=== PATIENT | female | born 1990 | race Caucasian/White ===

== ENCOUNTER 2018-07-29 19:47 | Emergency (ER) | payer BC, SELFPAY ==
[2018-07-29 19:54] VITALS: BP 128/77; PULSE 95; RESP 16; TEMP 36.7; O2SAT 97
--- NOTE | 2018-07-29 20:04 | W.ED.GENAD ---
Discharge Plan Disposition Patient Disposition: HOME Condition: Fair Discharge Details Chief Complaint: Orthopedic Clinical Impression: DVT (deep venous thrombosis) Primary Care Provider: None,None ED Provider: Gissel Hartman Home Meds and New Rx's Prescriptions: New Eliquis 5 mg tablet See Rx Instructions .ROUTE .COMPLEX Qty: 30 RF: 0 Continued desogestrel-ethinyl estradiol [Apri] 0.15-0.03 mg Tablet 1 tab PO DAILY RF: 0 Discharge Instructions Instructions: Apixaban (By mouth), Deep Venous Thrombosis (ED) Additional Instructions: Your D-dimer is elevated today and your exam is suspicious for deep vein thrombosis. You will need an ultrasound for a definitive diagnosis. Encourage hydration. Tylenol as needed for discomfort. Elevate lower extremity. Take Eliquis as prescribed. This medication increases your risk of bleeding as discussed. Call Ultrasound Wednesday [phone] to schedule ultrasound of your leg. After your ultrasound please come to the emergency department for results. incident response coordinator will work to help you establish primary care. Stop your control, this may be what lead to your clot. You will need to use alternative measures (ie. condoms) to prevent . You will need to follow up with [facility] to discuss other options. If you develop increased pain, fevers/chills, chest pain, shortness of breath, headache, chest pain or other new/worsneing symptoms please seek care urgently once again. Medical Decision Making Patient is 28-year-old female presenting today with chief complaint of left posterior calf pain. She reports the pain began over the past 3 days. Initially, she reports that the pain is intermittent. Over the past 24 hours the pain is become more constant. Endorses an ache in the posterior calf proximally to posterior knee. She denies any altered sensation. Denies any trauma. Patient is a non-smoker, is on oral contraceptive. Exam, calf is soft. She does have tenderness to palpation, positive Homans sign. No palpable cords. Full range of motion. Ultrasound is not available at this time. Plan to obtain a d-dimer to evaluate for possible DVT as this is a concern given the location of the discomfort. D-dimer was elevated. Plan to treat with Eliquis. We discussed risk/benefits of this medication in depth and the concerns associated with DVT. Plan to treat with Eliquis. I have referred patient for a formal ultrasound to be completed as soon as possible. Patient does not have a primary care at this time, I have asked her care according to help facilitate with this. She does not have a primary care, I have asked she return to the emergency department to discuss results after imaging is been completed. Encourage elevation. We discussed new/worsening symptoms when to seek care urgently once again. We discussed medications that she should avoid including anti-inflammatories. Advised she may use Tylenol to help with discomfort. All of her questions and concerns were addressed and she is in agreement this plan. Patient will stop her control as this is likely what precipitated a clot, advised on other contraceptive measures. She will [facility] with [facility] regarding this. Her urine test was negative today. Patient was given a first dose of Eliquis while here. HPI General Mode of arrival: ambulatory. Date/Time Provider Initiated Documentation: 07/29/18 19:58. Limitations to Documentation: no limitations. Information obtained by: patient, family and RN notes reviewed. History of Present Illness 28 year old F presents to the emergency department with the chief complaint of left posterior calf pain, described as moderate, with intensity rated at 6. Quality is described as aching, and is localized to the left and lower extremity. Patient reports no radiation. Patient started experiencing this day(s) and it has been intermittent. No relieving factors improve symptom(s), No exacerbating factors reported . Patient notes no other symptoms.; denies chest pain, cough, fever/chills, nausea/vomiting, shortness of breath and syncope. Patient did receive the following treatments prior to arrival, none Related Data Home Medications Medication Instructions Recorded Confirmed apixaban [Eliquis] See Rx Instructions .ROUTE 07/29/18 .COMPLEX #30 tab desogestrel-ethinyl estradiol 1 tab PO DAILY 07/29/18 07/29/18 [Apri] Previous Rx's Medication Instructions Recorded apixaban [Eliquis] See Rx Instructions .ROUTE 07/29/18 .COMPLEX #30 tab Allergies Allergy/AdvReac Type Severity Reaction Status Date / Time No Known Allergies Allergy Unverified 07/29/18 19:59 General Stated Complaint: Orthopedic SYDNIE: 4 Review of Systems Constitutional Reports as per HPI, Denies chills, Denies fever(s), Denies headache(s) and Denies weakness ENT Denies headache(s) Cardiovascular Reports as per HPI, Denies chest pain, Denies dyspnea and Denies dyspnea on exertion Respiratory Reports as per HPI, Denies cough, Denies dyspnea, Denies dyspnea on exertion and Denies wheezing Musculoskeletal Reports as per HPI and Denies tingling Integumentary/Breasts Reports as per HPI, Denies rash and Denies wounds Neurologic Reports as per HPI, Denies headache(s), Denies tingling, Denies paresthesias and Denies weakness Allergic/Immunologic Denies wheezing [facility] Social History Smoking/Tobacco Use Status: Never Alcohol Intake: never Drug use: Never Substance use type: does not use Do you feel safe at home: Yes Do you feel safe in your relationship?: Yes Exam Const General: cooperative, healthy appearing, comfortable, no acute distress, well developed and well groomed Nutritional Appearance: average body habitus and well nourished Orientation: alert and awake Resp Effort & Inspection: normal respiratory effort, able to speak in complete sentences and no respiratory distress Auscultation: clear to auscultation bilaterally Cardio Rate: regular rate Rhythm: regular rhythm Heart Sounds: S1 normal and S2 normal Skin General skin exam: no rashes or lesions noted Lesions: no lesions Rashes: no rashes Trauma: no lacerations or abrasions Neuro General: alert and awake Cognition: normal cognition Speech: speech normal Gait: normal gait Motor: muscle tone normal throughout Sensory Exam: no sensory deficits noted Extrem General: full ROM, normal capillary refill, no joint enlargement, no pedal edema, normal gait and calf tenderness on the left Left lower extremity: full ROM, normal capillary refill, no joint enlargement, knee Details: normal to inspection, lower leg Details: tenderness (+ Homans) Location: of the posterior calf and no edema; no erythema, no localized swelling, no palpable cords, no crepitus, no deformity and no unusual warmth, ankle Details: normal to inspection and foot Details: normal capillary refill and normal to inspection Psych Appearance: grossly normal and well kempt Mental Status: mental status grossly normal Speech and Movement: speech and movement normal Course Vital Signs Temperature 36.7 C 07/29/18 19:54 Pulse 95 H 07/29/18 19:54 Respiratory Rate 16 07/29/18 19:54 Blood Pressure 128/77 07/29/18 19:54 Pulse Oximetry 97 07/29/18 19:54 Temperature 36.7 C 07/29/18 19:54 Temperature Source Skin 07/29/18 19:54 Pulse 95 H 07/29/18 19:54 Respiratory Rate 16 07/29/18 19:54 Respiratory Effort Non-Labored 07/29/18 19:58 Blood Pressure 128/77 07/29/18 19:54 Pulse Oximetry 97 07/29/18 19:54 Oxygen Delivery Method Room Air 07/29/18 19:54 Oxygen Flow Rate 0 07/29/18 19:54 Pain Level 6 07/29/18 20:01
[2018-07-29 20:57] LABS: D-Dimer 1427 ng/mlFEU (<500)
--- NOTE | 2018-07-29 21:27 | ED.GENADUL_ITS ---
Discharge Plan Disposition Patient Disposition: HOME Condition: Fair Discharge Details Chief Complaint: Orthopedic Clinical Impression: DVT (deep venous thrombosis) Primary Care Provider: None,None ED Provider: Gissel Hartman Home Meds and New Rx's Prescriptions: New Eliquis 5 mg tablet See Rx Instructions .ROUTE .COMPLEX Qty: 30 RF: 0 Continued desogestrel-ethinyl estradiol [Apri] 0.15-0.03 mg Tablet 1 tab PO DAILY RF: 0 Discharge Instructions Instructions: Apixaban (By mouth), Deep Venous Thrombosis (ED) Additional Instructions: Your D-dimer is elevated today and your exam is suspicious for deep vein thrombosis. You will need an ultrasound for a definitive diagnosis. Encourage hydration. Tylenol as needed for discomfort. Elevate lower extremity. Take Eliquis as prescribed. This medication increases your risk of bleeding as discussed. Call Ultrasound Wednesday [phone] to schedule ultrasound of your leg. After your ultrasound please come to the emergency department for results. human resources operations coordinator will work to help you establish primary care. Stop your control, this may be what lead to your clot. You will need to use alternative measures (ie. condoms) to prevent . You will need to follow up with [facility] to discuss other options. If you develop increased pain, fevers/chills, chest pain, shortness of breath, headache, chest pain or other new/worsneing symptoms please seek care urgently once again. Medical Decision Making Patient is 28-year-old female presenting today with chief complaint of left posterior calf pain. She reports the pain began over the past 3 days. Initially, she reports that the pain is intermittent. Over the past 24 hours the pain is become more constant. Endorses an ache in the posterior calf proximally to posterior knee. She denies any altered sensation. Denies any trauma. Patient is a non-smoker, is on oral contraceptive. Exam, calf is soft. She does have tenderness to palpation, positive Homans sign. No palpable cords. Full range of motion. Ultrasound is not available at this time. Plan to obtain a d-dimer to evaluate for possible DVT as this is a concern given the location of the discomfort. D-dimer was elevated. Plan to treat with Eliquis. We discussed risk/benefits of this medication in depth and the concerns associated with DVT. Plan to treat with Eliquis. I have referred patient for a formal ultrasound to be completed as soon as possible. Patient does not have a primary care at this time, I have asked her care according to help facilitate with this. She does not have a primary care, I have asked she return to the emergency department to discuss results after imaging is been completed. Encourage elevation. We discussed new/worsening symptoms when to seek care urgently once again. We discussed medications that she should avoid including anti-inflammatories. Advised she may use Tylenol to help with discomfort. All of her questions and concerns were addressed and she is in agreement this plan. Patient will stop her control as this is likely what precipitated a clot, advised on other contraceptive measures. She will [facility] with [facility] regarding this. Her urine test was negative today. Patient was given a first dose of Eliquis while here. HPI General Mode of arrival: ambulatory . Date/Time Provider Initiated Documentation: 07/29/18 19:58 . Limitations to Documentation: no limitations . Information obtained by: patient, family and RN notes reviewed . History of Present Illness 28 year old F presents to the emergency department with the chief complaint of left posterior calf pain, described as moderate, with intensity rated at 6. Quality is described as aching, and is localized to the left and lower extremity. Patient reports no radiation. Patient started experiencing this day(s) and it has been intermittent. No relieving factors improve symptom(s), No exacerbating factors reported . Patient notes no other symptoms.; denies chest pain, cough, fever/chills, nausea/vomiting, shortness of breath and syncope. Patient did receive the following treatments prior to arrival, none Related Data Home Medications Medication Instructions Recorded Confirmed apixaban [Eliquis] See Rx Instructions .ROUTE 07/29/18 .COMPLEX #30 tab desogestrel-ethinyl estradiol 1 tab PO DAILY 07/29/18 07/29/18 [Apri] Previous Rx's Medication Instructions Recorded apixaban [Eliquis] See Rx Instructions .ROUTE 07/29/18 .COMPLEX #30 tab Allergies Allergy/AdvReac Type Severity Reaction Status Date / Time No Known Allergies Allergy Unverified 07/29/18 19:59 General Stated Complaint: Orthopedic SYDNIE: 4 Review of Systems Constitutional Reports as per HPI, Denies chills, Denies fever(s), Denies headache(s) and Denies weakness ENT Denies headache(s) Cardiovascular Reports as per HPI, Denies chest pain, Denies dyspnea and Denies dyspnea on exertion Respiratory Reports as per HPI, Denies cough, Denies dyspnea, Denies dyspnea on exertion and Denies wheezing Musculoskeletal Reports as per HPI and Denies tingling Integumentary/Breasts Reports as per HPI, Denies rash and Denies wounds Neurologic Reports as per HPI, Denies headache(s), Denies tingling, Denies paresthesias and Denies weakness Allergic/Immunologic Denies wheezing [facility] Social History Smoking/Tobacco Use Status: Never Alcohol Intake: never Drug use: Never Substance use type: does not use Do you feel safe at home: Yes Do you feel safe in your relationship?: Yes Exam Const General: cooperative, healthy appearing, comfortable, no acute distress, well developed and well groomed Nutritional Appearance: average body habitus and well nourished Orientation: alert and awake Resp Effort & Inspection: normal respiratory effort, able to speak in complete sentences and no respiratory distress Auscultation: clear to auscultation bilaterally Cardio Rate: regular rate Rhythm: regular rhythm Heart Sounds: S1 normal and S2 normal Skin General skin exam: no rashes or lesions noted Lesions: no lesions Rashes: no rashes Trauma: no lacerations or abrasions Neuro General: alert and awake Cognition: normal cognition Speech: speech normal Gait: normal gait Motor: muscle tone normal throughout Sensory Exam: no sensory deficits noted Extrem General: full ROM, normal capillary refill, no joint enlargement, no pedal edema, normal gait and calf tenderness on the left Left lower extremity: full ROM, normal capillary refill, no joint enlargement, knee Details: normal to inspection, lower leg Details: tenderness (+ Homans) Location: of the posterior calf and no edema; no erythema, no localized swelling, no palpable cords, no crepitus, no deformity and no unusual warmth, ankle Details: normal to inspection and foot Details: normal capillary refill and normal to inspection Psych Appearance: grossly normal and well kempt Mental Status: mental status grossly normal Speech and Movement: speech and movement normal Course Vital Signs Temperature 36.7 C 07/29/18 19:54 Pulse 95 H 07/29/18 19:54 Respiratory Rate 16 07/29/18 19:54 Blood Pressure 128/77 07/29/18 19:54 Pulse Oximetry 97 07/29/18 19:54 Temperature 36.7 C 07/29/18 19:54 Temperature Source Skin 07/29/18 19:54 Pulse 95 H 07/29/18 19:54 Respiratory Rate 16 07/29/18 19:54 Respiratory Effort Non-Labored 07/29/18 19:58 Blood Pressure 128/77 07/29/18 19:54 Pulse Oximetry 97 07/29/18 19:54 Oxygen Delivery Method Room Air 07/29/18 19:54 Oxygen Flow Rate 0 07/29/18 19:54 Pain Level 6 07/29/18 20:01
[2018-07-29] MEDS: Apixaban 5 MG TAB 10 MG PO ×2 (21:39)
[2018-07-29 21:42] VITALS: BP 125/80; PULSE 90; RESP 19; TEMP 36.7; O2SAT 98
--- NOTE | 2018-08-01 07:40 | PDOC.ERCMPRO ---
Care Management Progress Note 08/01- Gissel LOPES requested assistance with a PCP (patient does not have one, Dr. Pleitez guest relations associate) as soon as possible for ?DVT, patient started on Eliquis. Referral faxed to [facility] this am.
--- NOTE | 2018-08-01 07:41 | CMPROGNOTE_ITS ---
Care Management Progress Note 08/01- Gissel LOPES requested assistance with a PCP (patient does not have one, Dr. Pleitez air intercept controller) as soon as possible for ?DVT, patient started on Eliquis. Referral faxed to [facility] this am.
== END 2018-07-29 21:42 | disposition home or self-care (01) ==
PROVIDERS: Emergency Provider Physician Assistant
DX: I82.402 Acute embolism and thrombosis of unspecified deep veins of left lower extremity (principal)
CPT/HCPCS: 36415; 99283; 85379; L0172

== ENCOUNTER 2018-08-01 06:29 | Outpatient (CLI) | payer BC, SELFPAY ==
--- NOTE | 2018-08-01 09:31 | DI.US_ITS ---
SYMPTOM/DIAGNOSIS: ELEVATED D DIMER, + HOMANS, ? DVT LEFT LOWER EXTREMITY ULTRASOUND: The femoral and popliteal veins and visualized calf veins are freely compressible. No thrombus is visible. The doppler venous wave form augments normally. No Zheng's cyst or hematoma is seen. IMPRESSION: Negative left lower extremity ultrasound. No evidence of DVT.
== END 2018-08-01 06:49 ==
PROVIDERS: Visit Provider Physician Assistant
DX: R79.1 Abnormal coagulation profile (principal); R29.898 Other symptoms and signs involving the musculoskeletal system
CPT/HCPCS: 93971

== ENCOUNTER 2018-08-01 09:58 | Emergency (ER) | payer BC, SELFPAY ==
--- NOTE | 2018-08-01 10:07 | W.ED.GENAD ---
Discharge Plan Disposition Patient Disposition: HOME Condition: Stable Discharge Details Chief Complaint: GenMedical Clinical Impression: Left leg pain Primary Care Provider: None,None ED Provider: Yolanda Scott Home Meds and New Rx's Prescriptions: Continued desogestrel-ethinyl estradiol [Apri] 0.15-0.03 mg Tablet 1 tab PO DAILY RF: 0 Discontinued Eliquis 5 mg tablet See Rx Instructions .ROUTE .COMPLEX Qty: 30 RF: 0 Discharge Instructions Instructions: Leg Pain (ED) Additional Instructions: Please return immediately to the emergency department if you develop any new or worsening symptoms or if you become alert otherwise concerned. It is extremely important that you make an appointment to be seen as soon as possible and follow-up this visit by your primary care doctor as we discussed. It is also important that you have a follow-up ultrasound in 7 days as we discussed as well. Please call [phone] if you have any difficulty establishing this appointment. Discharge Data Discharge Date/Time-TO BE ENTERED AT DEPARTURE: 08/01/18 10:22 Medical Decision Making Jessica March is a 28-year-old woman without history of major medical problems who presented to the emergency department to have ultrasound performed after being placed on Eliquis at visit 3 days ago with concern for lower extremity DVT because of left posterior calf pain. On exam patient is very well and nontoxic appearing. She has mild posterior calf tenderness and popliteal tenderness on the left side. DP pulses are intact and symmetric. There is no lower extremity edema. No rash. Ultrasound results it is negative. At this time there is no indication to continue Eliquis, will also have patient restart her control. Plan for repeat ultrasound in 7 days should symptoms persist. Patient placed on care management list for establishment of PCP and follow-up visit, also for left lower extremity ultrasound in 7 days. I had a lengthy discussion with the patient regarding return to emergency department precautions, importance of outpatient follow-up, and home care. Patient verbalized understanding of the plan was amenable. All questions were answered. Patient was discharged home with clear plan for outpatient follow-up. Medical Records Medical records reviewed: Yes I reviewed the patient's medical records. Imaging Data Radiologic Study: Attestation: I personally reviewed and interpreted this imaging study as follows: Radiologist's impression: LEFT LOWER EXTREMITY ULTRASOUND: The femoral and popliteal veins and visualized calf veins are freely compressible. No thrombus is visible. The doppler venous wave form augments normally. No Zheng's cyst or hematoma is seen. IMPRESSION: Negative left lower extremity ultrasound. No evidence of DVT. HPI General Mode of arrival: ambulatory. Date/Time Provider Initiated Documentation: 08/01/18 10:07. Limitations to Documentation: no limitations. Information obtained by: patient, RN notes reviewed and old records reviewed. HPI Narrative: Jessica March is a 28-year-old woman without history of major medical problems presenting to the emergency department for ultrasound results. Patient was seen here 07/29/2018 for left calf pain. She was put on Eliquis at that time and told to return this morning to have ultrasound performed as it was not available at the time of her initial visit. Patient reports that she has been having the intermittent posterior calf pain for approximately 1 week. She reports that she has been taking the Eliquis as prescribed since 07/29. She reports that pain seems to improve yesterday, and she is only having very mild pain today. She denies any swelling of her legs, rash, fever, shortness of breath, cough. She feels well and in her usual state of health at this time. She denies having any trauma at the time of onset of her pain. No recent illness. Patient did stop taking her control on 07/29/2018 as was advised. Related Data Home Medications Medication Instructions Recorded Confirmed desogestrel-ethinyl estradiol 1 tab PO DAILY 07/29/18 08/01/18 [Apri] Allergies Allergy/AdvReac Type Severity Reaction Status Date / Time No Known Allergies Allergy Unverified 08/01/18 10:11 General SYDNIE: 4 PFS Social History Smoking/Tobacco Use Status: Never Alcohol Intake: never Drug use: Never Substance use type: does not use Do you feel safe at home: Yes Do you feel safe in your relationship?: Yes Exam Narrative Exam Narrative: Constitutional: well and [id number], pleasant, conversing normally HENT: head atraumatic/normocephalic/normal inspection, mucous membranes moist Eyes: conjunctiva normal, sclera normal, pupils 3mm b/l Neck: no stridor, normal ROM, trachea midline Resp: normal work of breathing Cardio: normal rate, normal rhythm Skin: warm, dry, normal color, no rash Neuro: alert, not altered, grossly non-focal, normal tone Ext: no edema, mild posterior calf TTP and popliteal TTP on left, no erythema, normal exam of the RLE, DP pulses intact and symmetric Psych: normal mood, normal affect, normal behavior
[2018-08-01 10:08] VITALS: PULSE 80; RESP 18; TEMP 36.7
[2018-08-01 10:10] VITALS: BP 120/76
--- NOTE | 2018-08-01 10:16 | NUR.NOTE ---
MD Scott examined patient, positive pedal pulse and sensation noted Nursing Note:
--- NOTE | 2018-08-01 10:18 | ED.GENADUL_ITS ---
Discharge Plan Disposition Patient Disposition: HOME Condition: Stable Discharge Details Chief Complaint: GenMedical Clinical Impression: Left leg pain Primary Care Provider: None,None ED Provider: Yolanda Scott Home Meds and New Rx's Prescriptions: Continued desogestrel-ethinyl estradiol [Apri] 0.15-0.03 mg Tablet 1 tab PO DAILY RF: 0 Discontinued Eliquis 5 mg tablet See Rx Instructions .ROUTE .COMPLEX Qty: 30 RF: 0 Discharge Instructions Instructions: Leg Pain (ED) Additional Instructions: Please return immediately to the emergency department if you develop any new or worsening symptoms or if you become alert otherwise concerned. It is extremely important that you make an appointment to be seen as soon as possible and follow-up this visit by your primary care doctor as we discussed. It is also important that you have a follow-up ultrasound in 7 days as we discussed as well. Please call [phone] if you have any difficulty establishing this appointment. Discharge Data Discharge Date/Time-TO BE ENTERED AT DEPARTURE: 08/01/18 10:22 Medical Decision Making Jessica March is a 28-year-old woman without history of major medical problems who presented to the emergency department to have ultrasound performed after being placed on Eliquis at visit 3 days ago with concern for lower extremity DVT because of left posterior calf pain. On exam patient is very well and nontoxic appearing. She has mild posterior calf tenderness and popliteal tenderness on the left side. DP pulses are intact and symmetric. There is no lower extremity edema. No rash. Ultrasound results it is negative. At this time there is no indication to continue Eliquis, will also have patient restart her control. Plan for repeat ultrasound in 7 days should symptoms persist. Patient placed on care management list for establishment of PCP and follow-up visit, also for left lower extremity ultrasound in 7 days. I had a lengthy discussion with the patient regarding return to emergency department precautions, importance of outpatient follow-up, and home care. Patient verbalized understanding of the plan was amenable. All questions were answered. Patient was discharged home with clear plan for outpatient follow-up. Medical Records Medical records reviewed: Yes I reviewed the patient's medical records. Imaging Data Radiologic Study: Attestation: I personally reviewed and interpreted this imaging study as follows: Radiologist's impression: LEFT LOWER EXTREMITY ULTRASOUND: The femoral and popliteal veins and visualized calf veins are freely compressible. No thrombus is visible. The doppler venous wave form augments normally. No Zheng's cyst or hematoma is seen. IMPRESSION: Negative left lower extremity ultrasound. No evidence of DVT. HPI General Mode of arrival: ambulatory . Date/Time Provider Initiated Documentation: 08/01/18 10:07 . Limitations to Documentation: no limitations . Information obtained by: patient, RN notes reviewed and old records reviewed . HPI Narrative: Jessica March is a 28-year-old woman without history of major medical problems presenting to the emergency department for ultrasound results. Patient was seen here 07/29/2018 for left calf pain. She was put on Eliquis at that time and told to return this morning to have ultrasound performed as it was not available at the time of her initial visit. Patient reports that she has been having the intermittent posterior calf pain for approximately 1 week. She reports that she has been taking the Eliquis as prescribed since 07/29. She reports that pain seems to improve yesterday, and she is only having very mild pain today. She denies any swelling of her legs, rash, fever, shortness of breath, cough. She feels well and in her usual state of health at this time. She denies having any trauma at the time of onset of her pain. No recent illness. Patient did stop taking her control on 07/29/2018 as was advised. Related Data Home Medications Medication Instructions Recorded Confirmed desogestrel-ethinyl estradiol 1 tab PO DAILY 07/29/18 08/01/18 [Apri] Allergies Allergy/AdvReac Type Severity Reaction Status Date / Time No Known Allergies Allergy Unverified 08/01/18 10:11 General SYDNIE: 4 PFS Social History Smoking/Tobacco Use Status: Never Alcohol Intake: never Drug use: Never Substance use type: does not use Do you feel safe at home: Yes Do you feel safe in your relationship?: Yes Exam Narrative Exam Narrative: Constitutional: well and vnn-myjmj-dstkhjodt, pleasant, conversing normally HENT: head atraumatic/normocephalic/normal inspection, mucous membranes moist Eyes: conjunctiva normal, sclera normal, pupils 3mm b/l Neck: no stridor, normal ROM, trachea midline Resp: normal work of breathing Cardio: normal rate, normal rhythm Skin: warm, dry, normal color, no rash Neuro: alert, not altered, grossly non-focal, normal tone Ext: no edema, mild posterior calf TTP and popliteal TTP on left, no erythema, normal exam of the RLE, DP pulses intact and symmetric Psych: normal mood, normal affect, normal behavior
--- NOTE | 2018-08-02 08:50 | PDOC.ERCMPRO ---
Care Management Progress Note 08/02-Dr. Darryl Scott requested assistance with a PCP (does not have one, Kaya Danielson news operations manager) f/u as soon as possible. Patient needs a repeat LLE US in 7 days. Referral faxed to [facility] this am.
--- NOTE | 2018-08-02 08:51 | CMPROGNOTE_ITS ---
Care Management Progress Note 08/02-Dr. Darryl Scott requested assistance with a PCP (does not have one, Kaya Danielson insulation helper) f/u as soon as possible. Patient needs a repeat LLE US in 7 days. Referral faxed to [facility] this am.
== END 2018-08-01 10:22 | disposition home or self-care (01) ==
PROVIDERS: Emergency Provider Student in an Organized Health Care Education/Training Program
DX: M79.605 Pain in left leg (principal); Z71.2 Person consulting for explanation of examination or test findings

== ENCOUNTER 2021-02-12 13:07 | Outpatient (CLI) | payer MEDICAID, SELFPAY ==
[2021-02-12 13:46] LABS: HCG Quant, Pregnancy 23 mIU/mL (1-3)
== END 2021-02-12 13:08 | disposition home or self-care (01) ==
LOC: LBO 13:08
PROVIDERS: Visit Provider Obstetrics & Gynecology
DX: Z34.91 Encounter for supervision of normal pregnancy, unspecified, first trimester (principal)
CPT/HCPCS: 36415; 84702

== ENCOUNTER 2021-02-14 03:01 | Outpatient (CLI) | payer MEDICAID, SELFPAY ==
[2021-02-14 10:47] LABS: HCG Quant, Pregnancy 14 mIU/mL (1-3)
== END 2021-02-14 03:02 | disposition home or self-care (01) ==
LOC: LBO 03:01
PROVIDERS: Visit Provider Obstetrics & Gynecology
DX: Z34.91 Encounter for supervision of normal pregnancy, unspecified, first trimester (principal)
CPT/HCPCS: 36415; 84702

== ENCOUNTER 2021-02-25 02:56 | Outpatient (CLI) | payer MEDICAID, SELFPAY ==
[2021-02-25 11:58] LABS: HCG Quant, Pregnancy < 1 mIU/mL (1-3)
== END 2021-02-25 02:57 | disposition home or self-care (01) ==
LOC: LBO 02:56
PROVIDERS: Obstetrics & Gynecology; PCP Internal Medicine; Visit Provider Obstetrics & Gynecology Gynecology
DX: O03.9 Complete or unspecified spontaneous abortion without complication (principal)
CPT/HCPCS: 36415; 84702

== ENCOUNTER 2021-10-29 02:38 | Outpatient (CLI) | payer MEDICAID, SELFPAY ==
[2021-10-29 08:27] LABS: HCG Quant, Pregnancy 344 mIU/mL (1-3)
== END 2021-10-29 02:39 | disposition home or self-care (01) ==
PROVIDERS: PCP Internal Medicine; Visit Provider Obstetrics & Gynecology Gynecology
DX: Z32.01 Encounter for pregnancy test, result positive (principal)
CPT/HCPCS: 36415; 84702

== ENCOUNTER 2021-10-31 01:16 | Outpatient (CLI) | payer MEDICAID, SELFPAY ==
[2021-10-31 14:21] LABS: HCG Quant, Pregnancy 1475 mIU/mL (1-3)
== END 2021-10-31 01:17 | disposition home or self-care (01) ==
LOC: LBO 01:16
PROVIDERS: Obstetrics & Gynecology Gynecology; PCP Internal Medicine; Visit Provider Internal Medicine
DX: Z32.01 Encounter for pregnancy test, result positive (principal); N96 Recurrent pregnancy loss; Z87.59 Personal history of other complications of pregnancy, childbirth and the puerperium
CPT/HCPCS: 36415; 84702

== ENCOUNTER 2022-01-02 01:30 | Outpatient (CLI) | payer MEDICAID, SELFPAY ==
[2022-01-02 12:17] LABS: Kit/Specimen SENT
[2022-01-02 12:37] LABS: Abs Immature Grans 0.05 10^3/uL (0.0-0.06); Absolute Basophil Count 0.05 10^3/uL (0.0-0.2); Absolute Eosinophil Count 0.11 10^3/uL (0.0-0.7); Absolute Lymphocyte Count 3.27 10^3/uL (1.2-3.4); Absolute Monocyte Count 0.43 10^3/uL (0.1-0.8); Absolute Neutrophil Count 6.73 10^3/uL (1.2-6.7); Basophils % 0.5; HCT 33.4 % (36.0-46.0); HGB 11.3 g/dL (11.2-15.7); Immature Grans % 0.5; Lymphocytes % 30.7; MCH 30.1 pg (27.0-33.0); MCHC 33.8 % (32.0-36.0); MCV 89 fL (80-95); MPV 9.8 fL (8.0-11.0); Neutrophils % 63.3; Platelet Count 324 10^3/uL (130-400); RBC 3.76 10^6/uL (3.93-5.22); RDW 12.7 % (11.7-14.6); RDW-SD 41.1 fL; WBC 10.64 10^3/uL (4.4-10.8)
[2022-01-02 13:00] LABS: Glucose,1 Hr (Glucola) 137 mg/dL (80-140)
[2022-01-02 13:12] LABS: TSH (W/Ref FT4) 2.35 uIU/mL (0.36-3.74)
[2022-01-03 09:33] LABS: HIV-1/2 Ag & Ab Screen Negative (Negative)
[2022-01-04 13:55] LABS: Syphilis IgG w/Reflex Nonreactive (Nonreactive)
[2022-01-05 10:17] LABS: Hepatitis B Surface Ag Negative (Negative)
[2022-01-05 11:06] LABS: Varicella IgG Antibody Positive (See Note)
[2022-01-05 11:13] LABS: Rubella IgG Ab (UVM) Positive (See Note)
[2022-01-05 11:15] LABS: Hepatitis C Ab w Rflx HCV PCR Negative (Negative)
[2022-01-20 13:04] LABS: Result Summary NEGATIVE; Specimen WB Whole Blood
== END 2022-01-02 01:31 | disposition home or self-care (01) ==
LOC: LBO 01:31
PROVIDERS: Advanced Practice Midwife; PCP Internal Medicine; Visit Provider Advanced Practice Midwife
DX: Z34.91 Encounter for supervision of normal pregnancy, unspecified, first trimester
CPT/HCPCS: 36415; 81220; 81222; 82950; 86787; 86803; 86850; 86900; 86901; 87340; 87389; 84443; 85025; 86762; 86780

== ENCOUNTER 2022-01-02 14:52 | Outpatient (REF) | payer MEDICAID, SELFPAY ==
--- NOTE | 2022-01-02 11:00 | PAPFT_PTH ---
PATIENT: Jessica Hernandez LOC: [facility] U#:[id number] AGE/SX: 31/F ROOM: RE01/02/[address]: Arabella Glaser : 1990 BED: DIS: 01/02/2022 SPEC #: [id number] RECD: 01/02/22 18:30 STATUS: LYNDSEY REQ #: [id number] LIZZETH: 01/02/22 11:[address]: Arabella Glaser DEPT: [facility] Cytology RECD BY: Mirian Quick ENTERED: 01/02/22 18:31 SP TYPE: PAPFT OTHR DR: Deb Garduno Tissues: 1 - CX/ENDOCX FOR PAP SMEARS Procedures: PAP THIN PREP/UVM Screening HPV DNA PROBE Comments: [id number]
[2022-01-05 15:42] LABS: Chlamydia Result Negative (Negative); GC Result Negative (Negative)
[2022-01-08 10:55] LABS: Buprenorphine Negative ng/mL (Cutoff: 5.0); Norbuprenorphine Negative ng/mL (Cutoff: 2.5)
== END 2022-01-02 14:53 | disposition home or self-care (01) ==
LOC: LBN 14:52
PROVIDERS: PCP Internal Medicine; Visit Provider Advanced Practice Midwife
DX: Z34.91 Encounter for supervision of normal pregnancy, unspecified, first trimester; Z12.4 Encounter for screening for malignant neoplasm of cervix; Z11.3 Encounter for screening for infections with a predominantly sexual mode of transmission; R87.612 Low grade squamous intraepithelial lesion on cytologic smear of cervix (LGSIL); R87.810 Cervical high risk human papillomavirus (HPV) DNA test positive
CPT/HCPCS: 80348; 87491; 87591; 88142; 87086; 87624

== ENCOUNTER 2022-01-15 02:56 | Outpatient (CLI) | payer MEDICAID, SELFPAY ==
[2022-01-15 14:12] LABS: Glucose 1 Hour 99 mg/dL
[2022-01-15 17:11] LABS: Glucose 3 Hour 89 mg/dL
== END 2022-01-15 02:57 | disposition home or self-care (01) ==
PROVIDERS: PCP Internal Medicine; Visit Provider Advanced Practice Midwife
DX: R73.09 Other abnormal glucose (principal)
CPT/HCPCS: 36415; 82951

== ENCOUNTER 2022-04-10 01:15 | Outpatient (CLI) | payer MEDICAID, SELFPAY ==
[2022-04-10 09:28] LABS: Abs Immature Grans 0.04 10^3/uL (0.0-0.06); Absolute Basophil Count 0.03 10^3/uL (0.0-0.2); Absolute Eosinophil Count 0.19 10^3/uL (0.0-0.7); Absolute Lymphocyte Count 3.19 10^3/uL (1.2-3.4); Absolute Monocyte Count 0.62 10^3/uL (0.1-0.8); Absolute Neutrophil Count 6.96 10^3/uL (1.2-6.7); Basophils % 0.3; Eosinophils % 1.7; HCT 33.1 % (36.0-46.0); HGB 10.9 g/dL (11.2-15.7); Immature Grans % 0.4; Lymphocytes % 28.9; MCH 30.2 pg (27.0-33.0); MCHC 32.9 % (32.0-36.0); MCV 92 fL (80-95); MPV 9.3 fL (8.0-11.0); Monocytes % 5.6; Neutrophils % 63.1; Platelet Count 323 10^3/uL (130-400); RBC 3.61 10^6/uL (3.93-5.22); RDW 12.7 % (11.7-14.6); RDW-SD 42.1 fL; WBC 11.03 10^3/uL (4.4-10.8)
[2022-04-10 11:06] LABS: Glucose 1 Hour 126 mg/dL
[2022-04-10 13:27] LABS: Glucose 3 Hour 91 mg/dL
== END 2022-04-10 01:16 | disposition home or self-care (01) ==
LOC: LBO 01:16
PROVIDERS: PCP Internal Medicine; Visit Provider Obstetrics & Gynecology
DX: Z34.92 Encounter for supervision of normal pregnancy, unspecified, second trimester (principal); R73.09 Other abnormal glucose
CPT/HCPCS: 36415; 82951; 85025

== ENCOUNTER 2022-05-11 01:09 | Outpatient (CLI) | payer MEDICAID, SELFPAY ==
--- NOTE | 2022-05-11 07:00 | DI.US_ITS ---
Exam(s) US OB RIGOBERTO WEIGHT EXAM: US OB RIGOBERTO WEIGHT CLINICAL HISTORY: growth due to placenta adherent to uterine septum,Q51.28. TECHNIQUE: Transabdominal obstetrical ultrasound performed. COMPARISON: No exams were available for comparison FINDINGS: Number of fetuses: 1 position: BREECH Placental location: There is a grade 1 fundal placenta. No evidence of previa. BIOMETRIC DATA: BPD: 7.86cm, 31weeks 4days HC: 29.37cm, 32weeks 3days AC: 27.13cm, 31weeks 2days FL: 6.21cm, 32weeks 1day EFW: 1,812.07g, 4lb, 28.5% Composite Age: 31weeks 6days RISSA: 07/07/2022 Heart Rate: 127bpm Amniotic fluid index: 10.55cm. Visually, amount of fluid is within normal limits. IMPRESSION: 1. Single live intrauterine gestation as above. 2. Estimated weight is 1812gms. This is the 29th percentile. 3. Amniotic fluid index is 10.6 cm. Visually within normal limits. DATA REPOSITORY:
== END 2022-05-11 01:29 ==
LOC: DI 01:09
PROVIDERS: PCP Internal Medicine; Visit Provider Obstetrics & Gynecology
DX: Z3A.32 32 weeks gestation of pregnancy (principal); O32.1XX0 Maternal care for breech presentation, not applicable or unspecified; O43.893 Other placental disorders, third trimester
CPT/HCPCS: 76816

== ENCOUNTER 2022-06-11 15:56 | Outpatient (REF) | payer MEDICAID, SELFPAY ==
[2022-06-11 19:07] LABS: *AMPHETAMINES SCREEN URINE Negative (Negative); *BARBITURATES SCREEN URINE Negative (Negative); *BENZODIAZEPINES SCREEN URINE Negative (Negative); Cannabinoids THC Negative (Negative); Cocaine Screen,Urine Negative (Negative); METHADONE URINE SCREEN Negative (Negative); OPIATES URINE SCREEN Negative (Negative)
[2022-06-11 19:12] LABS: Tricyclic Antidepressants Negative (Negative)
[2022-06-18 14:39] LABS: Buprenorphine Negative ng/mL (Cutoff: 5.0); Norbuprenorphine Negative ng/mL (Cutoff: 2.5)
== END 2022-06-11 15:57 | disposition home or self-care (01) ==
LOC: LBN 15:56
PROVIDERS: PCP Internal Medicine; Visit Provider Obstetrics & Gynecology
DX: Z34.93 Encounter for supervision of normal pregnancy, unspecified, third trimester (principal); Z36.85 Encounter for antenatal screening for Streptococcus B; Z3A.36 36 weeks gestation of pregnancy
CPT/HCPCS: 80307; 80348; 87081

== ENCOUNTER 2022-06-24 05:35 | Inpatient (IN) | payer MEDICAID, SELFPAY ==
[2022-06-22 14:08] LABS: Abs Immature Grans 0.11 10^3/uL (0.0-0.06); Absolute Basophil Count 0.06 10^3/uL (0.0-0.2); Absolute Lymphocyte Count 3.47 10^3/uL (1.2-3.4); Absolute Monocyte Count 0.95 10^3/uL (0.1-0.8); Basophils % 0.5; Eosinophils % 1.9; HCT 32.9 % (36.0-46.0); HGB 10.7 g/dL (11.2-15.7); Immature Grans % 0.9; MCH 29.1 pg (27.0-33.0); MCHC 32.5 % (32.0-36.0); MCV 89 fL (80-95); MPV 9.8 fL (8.0-11.0); Monocytes % 7.4; Neutrophils % 62.3; Platelet Count 310 10^3/uL (130-400); RBC 3.68 10^6/uL (3.93-5.22); RDW 13.4 % (11.7-14.6); RDW-SD 43.5 fL; WBC 12.87 10^3/uL (4.4-10.8)
[2022-06-22 14:09] LABS: Absolute Eosinophil Count 0.24 10^3/uL (0.0-0.7); Absolute Neutrophil Count 8.02 10^3/uL (1.2-6.7)
--- NOTE | 2022-06-23 14:47 | ANES.PREOP_ITS ---
General Info Date of Service Date Performed: 06/24/22 Height: 5 ft 5 in Weight: 102 kg Body Mass Index (BMI): 37.4 Surgical Procedure: Operation Date: 06/24/22 07:40 Proposed Procedure Side Surgeon p Repeat Section, B/L Salpingectomy, Possible Hysterectomy Zuleima Schwarz DO Meds Allergies and Home Medications Allergies Allergy/AdvReac Type Severity Reaction Status Date / Time sulfamethoxazole Allergy Verified 06/23/22 10:35 [From Bactrim] trimethoprim [From Bactrim] Allergy Verified 06/23/22 10:35 Home Medication Medication Instructions Recorded prenat.vits,aleyda,uwn-fpsh-nvubg 1 tab PO DAILY 02/12/21 [facility] Active Problems Active Problems: Problem Status Onset Code Z34.90 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 History of marijuana use F12.91 Anxiety F41.9 History of hypothyroidism Z86.39 BMI 31.0-31.9,adult Z68.31 Elevated glucose R73.09 LGSIL on Pap smear of cervix R87.612 Medical History Medical History (Updated 06/11/22 @ 14:51 by Alba Bradshaw RN) Early stage of History of miscarriage Surgical History Surgical History (Updated 11/21/21 @ 09:09 by Yessenia Vallecillo MD) Previous section 35 weeks, breech Status post hysteroscopic resection of uterine septum June 2021 at [facility] Tobacco Smoking/Tobacco Use Status: Never Second hand exposure: Yes Alcohol Alcohol Intake: never Substance Use Substance use: Daily Substance use type: marijuana Prental History History 5 Para 1 Hx # Term Pregnancies Multiple births Hx # Pregnancies 1 Ectopic pregnancies AB induced Hx Number of Living Children 1 AB spontaneous 3 Past Pregnancies Del. Date GA/Weeks # Preg Succ Route Wgt Sex Labor Lgth Anesth esia Location Prov [facility] 07/13/13 35 No Yes Male [place] Delivery Date: 07/13/13 Last Updated by: Arabella Glaser CNM PPROM at 35 weeks. no complications from surgery Vital Signs and Lab Results Vital Signs Most Recent Vital Signs in EMR: Temp Pulse BP 36.9 C 90 112/74 06/24/22 06:27 06/24/22 06:27 06/24/22 06:27 Lab Results Blood Type / Crossmatch: Patient ABO/Rh A Positive 06/22/22 Antibody Screen NEGATIVE 06/22/22 Complete Blood Count: White Blood Count 12.87 10^3/uL (4.4-10.8) H 06/22/22 14:02 Red Blood Count 3.68 10^6/uL (3.93-5.22) L 06/22/22 14:02 Hemoglobin 10.7 g/dL (11.2-15.7) L 06/22/22 14:02 Hematocrit 32.9 % (36.0-46.0) L 06/22/22 14:02 Platelet Count 310 10^3/uL (130-400) 06/22/22 14:02 Complete Metabolic Panel: No Data to Display Liver Function Panel: No Data to Display Coagulation Panel: No Data to Display Cardiac Panel: No Data to Display Arterial Blood Gas: No Data to Display Venous Blood Gas: No Data to Display Pancreas Panel: No Data to Display Thyroid Panel: No Data to Display Infectious Disease: No Data to Display Blood Cultures: No Data to Display Toxicology Panel: Urine Amphetamines Screen Negative (Negative) 06/11/22 15:00 Urine Benzodiazepines Screen Negative (Negative) 06/11/22 15:0 0 Urine Barbiturates Screen Negative (Negative) 06/11/22 15:00 Urine Cocaine Screen Negative (Negative) 06/11/22 15:00 Urine Methadone Screen Negative (Negative) 06/11/22 15:00 Urine Opiates Screen Negative (Negative) 06/11/22 15:00 Ur Tricyclic Antidepressants Screen Negative (Negative) 15:00 Ur Tetrahydrocannabinol (THC) Scrn Negative (Negative) 3 15:00 Panel: No Data to Display Anesthesia Assessment and Plan Anesthesia History Personal History: No History of Anesthesia Complications Family History: No Family History of Anesthesia Complications Exercise Tolerance Exercise Tolerance: Metabolic Equivalents>4 Cardiac & Pulmonary Exam Cardiac Exam: Normal S1/S2 Heart Sounds Pulmonary Exam: Clear Bilateral Breath Sounds Implantable Cardiac Device Does patient have a Pacemaker or an ICD?: No Airway Exam Known Difficult Airway: No Mallampati Class: 2 Mouth Opening: Normal (> 3cm) Thyromental Distance: Greater than 3 cm Neck Range of Motion: Full ROM Neck Circumference: Normal Teeth Condition: Normal Dentition ASA Classification ASA Score: ASA 2 Emergency Case?: No NPO Status NPO Status: NPO Clears >2 hours, Solids >8 hours Status Status: Confirmed Anesthesia Plan Resuscitation Status: Full Code Anesthesia Technique: Spinal Anesthesia Airway Planned: Natural Airway Monitors Used: Standard Monitors Preoperative Comments:: 32 yo female for repeat section. previous section in 2013 at 35 weeks, breech, in [place]. Sig PMHx: septate uterus, anxiety (sertraline), hypothyroid (last TSH normal, not on replacement), never tobacco, former cannabis At risk for PPH. Previous Anes: - LMA 4, easy mask. Plan: spinal, 2 IVs.
[2022-06-24] VITALS (9 sets, daily range): BP systolic 103–125; BP diastolic 59–76; PULSE 64–98; RESP 17–18; TEMP 36.4–36.9; O2SAT 98; BMI 37.4
[2022-06-24] MEDS: Lactated Ringers 1,000 ML 200 ML IV (06:54)
[2022-06-24] MEDS: AZITHROMYCIN 500 MG in Normal Saline 250 ML 250 MG IVPB (06:54)
[2022-06-24] MEDS: Sodium Citrate 30 ML CUP PO (07:21)
[2022-06-24] MEDS: ceFAZolin 2 GM/50 ML BAG IVPB (07:36)
[2022-06-24] MEDS: Lactated Ringers 1,000 ML 30 ML IV (07:36)
[2022-06-24] MEDS: Bupivacaine 0.25% Pres-Free 30 ML VIAL (07:56)
--- NOTE | 2022-06-24 08:24 | FALL_PTH ---
PATIENT: Jessica Hernandez LOC: OBS U#:[id number] AGE/SX: 32/F ROOM: OBS.303 RE06/24/[address]: Zuleima Schwarz DO : 1990 BED: A DIS: 06/27/2022 SPEC #: [id number] RECD: 06/24/22 11:33 STATUS: LYNDESY REQ #: [id number] LIZZETH: 06/24/22 08:[address]: Zuleima Schwarz DEPT: Surgical Specimen RECD BY: Mirian Quick ENTERED: 06/24/22 11:34 SP TYPE: Fall OTHR DR: Deb Garduno Tissues: 1 - FALLOPIAN TUBE (STERILIZATION) 2 - FALLOPIAN TUBE (STERILIZATION) Procedures: GROSS AND MICRO LEVEL 2 Comments: [id number]
--- NOTE | 2022-06-24 08:46 | PDOC.OPNB_ITS ---
Date of service: 06/24/22 Time of Service: 08:47 Operative Note Operative Note Delivery Method: Scheduled and Repeat (Breech) Previous LT Incision: Yes DATE OF PROCEDURE: 06/24/22 PRE-OP DIAGNOSES: Term , prior section, breech presentation POST-OP DIAGNOSES: same (With 2 cm anterior fundal uterine fibroid, and undesired fertility) PROCEDURE: Repeat low-transverse section with bilateral salpingectomy SURGEON: Zuleima Schwarz Assisting Surgeon: Rocio Bacon Anesthesia: local and spinal Estimated blood loss (mL): 500 Pathology: other (1. Left fallopian tube 2. Right fallopian tube) Complications: None Patient was transported to: floor Patient's condition: stable Indications: Prior section, breech presentation, undesired fertility Findings: Normal-appearing fallopian tubes and ovaries bilaterally. Fetus in the breech presentation. Uterus with a window in the lower uterine segment at her previous section scar, and small anterior fundal uterine fibroid. Procedure Description: After full informed consent was obtained, the patient was taken the operating room with an IV running. She was placed in the seated position and spinal anesthesia administered, tested and found to be adequate. She was placed in the dorsal supine position with a leftward tilt prepped. She received Ancef 2 g and Zithromax 500 mg for surgical site infection prophylaxis. She had a vaginal preparation and placement of Campbell catheter. As of note, with placement of Campbell catheter urine appeared somewhat bloody tinged, though atraumatic insertion. She had pneumatic compression stockings for DVT prophylaxis. A Pfannenstiel skin incision was made through her previous surgical incision site and carried down to the underlying fascia. Fascia was nicked in the midline and extended laterally. The rectus muscles were identified in the midline. Peritoneum identified tented up and entered sharply. The peritoneal incision was then extended superiorly and inferiorly and the bladder blade was inserted. There was noted to be a thin window in the lower uterine segment. The vesicouterine peritoneum identified tented up and entered sharply and the bladder flap was created. The bladder blade was then reinserted and a low transverse uterine incision was made with a scalpel and extended bluntly laterally. There is artificial rupture of membranes for clear fluid. The breech was delivered through the incision to the point that the shoulders were identified. The right arm was delivered out through the incision followed by the left arm and with the head in the flexed position vertex was delivered through the incision. There is no evidence of nuchal cord. Three-vessel cord was noted clamped x2 and cut and the infant was handed off to the waiting diatrician. At this point cord blood samples were obtained and the placenta was manually expressed from the uterus. The uterus was then exteriorized and cleared of all clot and debris. On palpation there was noted to be approximately 3 cm her remaining uterine septum at the fundus and a heart-shaped appearance to the uterus. At this point the uterine incision was closed in a 2 layer closure using 0 Monocryl suture with the first layer being running locked, second being imbricating. The uterus was noted to be hemostatic at this point. Attention was then turned to the left fallopian tube which was cautery transected and removed. Similar procedure carried out on the right fallopian tube. Uterus was then returned to the abdomen and all pedicles again reinspected and noted to be hemostatic. The fascial incision was then closed using 0 Vicryl suture in a running fashion. Subcutaneous tissue irrigated with copious amounts of normal saline and reapproximated with 3-0 Vicryl. The skin edge was then reapproximated with 4-0 undyed Monocryl in a subcuticular fashion and Steri- Strips and sterile dressing were placed. The uterus was noted to be firm and approximately 2 cm below the umbilicus at the time of completion of her surgery. Sponge lap and needle counts were correct x2. Patient was taken to the center in stable condition with a Campbell catheter draining slightly blood-tinged urine as it was at the placement of her catheter. Findings: Delivery of a viable female from the angela breech presentation. Normal-appearing fallopian tubes and ovaries bilaterally. Thin window in the lower uterine segment from previous section. 2 cm anterior fundal uterine fibroid. Fluids: Crystalloid per anesthesia EBL: 500 mL Complications: None apparent Pathology: 1. Left fallopian tube 2. Right fallopian tube.
--- NOTE | 2022-06-24 09:04 | W.ANESPOSTOP ---
Postoperative Evaluation Date, Time and Location Date Performed: 06/24/22 Time Performed: 09:04 Patient Location: Obstetrics Vital Signs Most Recent Imported Vital Signs: Most Recent Vital Signs Temp Pulse BP 36.9 C 73 111/59 L 06/24/22 06:27 06/24/22 08:58 06/24/22 08:58 Assessment Mental Status: Awake (Alert & Oriented to Patient Baseline) Airway and Respiratory Function: Patent airway with normal (patient baseline) respiratory exam Cardiovascular Function: Hemodynamically Stable Hydration Status: Adequately Hydrated Nausea & Vomiting: No Nausea or Vomiting Pain: Pt. Denies Any Pain Peripheral Nerve Block: Patient did not receive a nerve block Postoperative Comments:: Spinal still in effect. Slight tremor, discussed dexmed to stop it, but will hold on that for now. encouraged to reach out with any questions of concerns
[2022-06-24] MEDS: Ondansetron 4 MG/2 ML VIAL IVP (11:56)
[2022-06-24] MEDS: Lactated Ringers 1,000 ML 120 ML IV (14:14)
[2022-06-24] MEDS: Ketorolac 30 MG/ML VIAL 15 MG IVP ×2 (14:20→20:09)
[2022-06-24] MEDS: Normal Saline Flush 10 ML SYR IVP (14:21)
[2022-06-24] MEDS: Simethicone 80 MG CHEW 40 MG PO (14:51)
[2022-06-24] MEDS: Simethicone 80 MG CHEW 160 MG PO (20:09)
[2022-06-25] VITALS (20 sets, daily range): BP systolic 106–130; BP diastolic 58–82; PULSE 80–106; RESP 15–23; TEMP 36.7–37.1; O2SAT 93–98
[2022-06-25] MEDS: Normal Saline Flush 10 ML SYR IVP ×3 (02:13→19:51)
[2022-06-25] MEDS: Ketorolac 30 MG/ML VIAL 15 MG IVP (02:13)
[2022-06-25] MEDS: oxyCODONE 5 mg/Acetaminophen 325 mg TAB PO ×3 (06:15→21:06)
--- NOTE | 2022-06-25 08:00 | DI.CT_ITS ---
Exam(s) CT ABDOMEN PELVIS W EXAM: CT ABDOMEN PELVIS W CLINICAL HISTORY: post op, Suspect hemoperitoneum. TECHNIQUE: Imaging Protocol: Axial computed tomography images with coronal and sagittal reformatted images were created and reviewed CONTRAST MATERIAL: Intravenous: Omnipaque 350 Contrast volume:100 ml Oral: no COMPARISON: No exams were available for comparison FINDINGS: ABDOMEN: Lung Bases: A tiny right pleural effusion and adjacent atelectasis. Liver: Normal density. No suspicious measurable mass. Gallbladder and biliary tract: No radiodense calculus or dilation. Pancreas: Normal density, no abnormal calcifications or inflammatory process. Spleen: Normal. Kidneys: Normal size, contour and axis. No radiodense stones or obstructive uropathy. No suspicious m asses seen. Adrenal glands: No masses seen. Abdominal Aorta: Abdominal portion non-dilated. Soft tissues: Multiple air bubbles within anterior abdominal wall consistent with recent surgery. PELVIS: Bladder: Distended. Few bubbles of air presumably related to recent instrumentation.. No gross wall thickening. No calculi.No focal mass. Bowel: Large quantity of stool in ascending colon. No obstruction. No bowel wall thickening. Appen carrie not visualized. Peritoneal cavity: Free air related to recent surgery. Small amount of fluid seen around the liver a nd spleen. High-density material seen in the low pelvis mainly along the right paracolic gutter susp icious for hemorrhage. No definite area of active extravasation. Bones: Within normal limits for age. Reproductive organs: Markedly enlarged uterus consistent with recent status. Small amount of blood products in the lower cervix. Low-density area anteriorly could be sites of this area in s ection. Lymph nodes: Unremarkable. Impression: Enlarged uterus, status post . Hemoperitoneum. No site of active contrast extravasation vi sible. RADIATION DOSE DELIVERED: 1,541.59mGy.cm Total DLP DATA REPOSITORY: All CT scans at this facility are submitted to the National Radiology Data Registry (NRDR) Dose Index Registry (DIR) with the [employer] (A[employer]). RADIATION OPTIMIZATION: All CT scans at this facility use at least one of these dose optimization te chniques: automated exposure control; mA and/or kV adjustment per patient size (includes targeted exa ms where dose is matched to clinical indication); or iterative reconstruction.
--- NOTE | 2022-06-25 08:35 | OBPPV_ITS ---
Date of service: 06/25/22 Time of Service: 08:35 Assessment and Plan Assessment and plan (1) Status post repeat low transverse section: Status: Acute Assessment and plan: Postoperative day #1 status post repeat low transverse section with bilateral salpingectomy. Patient is displaying signs of a hemoperitoneum with drop in hemoglobin and CT confirmed these findings. To be taken the operating suite and urgent fashion for exploratory laparotomy with removal of hemoperitoneum, and control of bleeding. She does understand that hysterectomy may be a possibility. She received packed red blood cells. Cryoprecipitate is being followed. (2) Hemoperitoneum: Status: Acute Subjective Subjective Narrative: This is a late entry progress note. Patient was seen and examined on the [facility] at approximately 715 this morning. Upon arrival to the [facility], I was notified of a postoperative hemoglobin of 5.8. Nursing reported stable vital signs throughout the night. Her Campbell catheter had been continued at approximately 6 PM. She had not voided spontaneously until approximately 1 AM. She had a bladder scan that was performed per nursing report for 200 cc of urine and then she voided at approximately 115 for 225 cc of urine. Upon my arrival on the floor this morning, patient appeared somewhat pale with some abdominal tenderness. She stated that she had 1 Percocet which relieved her pain somewhat. She had been up and ambulatory without dizziness. In light of her reported drop of hemoglobin from 10.7-5.8 with her symptoms, repeat hemoglobin was performed at 5.9. Stat CT of the abdomen and pelvis with contrast was performed which revealed diffuse hemoperitoneum. In light of this and all the findings, it is warranted to take her back to the operating room for exploratory laparotomy removal of hemoperitoneum to assess bleeding. She does understand that she will receive at minimum 2 units of packed red blood cells and have an open laparotomy. This does not appear to be a uterine source, however she had previously been consented for hysterectomy which is still a possibility if her source is a uterine bleeder. Risk benefits and alternatives of surgery were reexplained to the patient, and her and full informed consent was obtained. Exam Physical Exam Vital signs: Temp Pulse Resp BP Pulse Ox 98.2 F 88 16 106/61 98 06/25/22 07:30 06/25/22 07:30 06/25/22 02:20 06/25/22 07:30 06/25/22 02:20 Constitutional Comments: Pale, abdominal discomfort. Alert, awake, oriented HEENT Exam HEENT Exam: Normal Cardiovascular Exam Cardiovascular Exam: Normal Abdominal Exam Comments: Abdomen is distended, tender, diffusely. No rebound or rigidity, however markedly different than her postoperative examination immediately upon her Fundal Exam Comment: Not palpable due to her distention.
[2022-06-25] MEDS: ELECTROLYTE-R SOLUTION 1,000 ML 30 ML IV (09:07)
[2022-06-25] MEDS: ceFAZolin 2 GM/50 ML BAG IVPB (09:18)
[2022-06-25] MEDS: Cellulose,Oxidized 4X8 1 PACKET MC (09:38)
--- NOTE | 2022-06-25 10:41 | W.PM.OP ---
Date of service: 06/25/22 Time of Service: 10:41 Operative Note Operative Note DATE OF PROCEDURE: 06/24/22 PRE-OP DIAGNOSIS: Postoperative bleeding, hemoperitoneum POST-OP DIAGNOSIS: same (No active source of bleeding) PROCEDURE: Exploratory laparotomy, removal of hemoperitoneum. SURGEON: Zuleima Schwarz ASSISTING SURGEON: Rocio Bacon ANESTHESIA TYPE: General LMA/ETT Refer to Anesthesia Record ESTIMATED BLOOD LOSS: 500 PATHOLOGY: none sent COMPLICATIONS: None (Hemoperitoneum, no active bleeding.) Patient was transported to: floor Patient's condition: stable Indications: Postoperative anemia, clinical suspicion of hemoperitoneum. Free fluid in the abdomen and pelvis confirmed on CT Findings: Hemostatic pedicles at the bilateral fallopian tube resection sites, and uterus. 500 cc of old blood and clot in the pelvis and abdomen. No active source of bleeding. Normal-appearing ovaries bilaterally. Uterus involuted. Procedure Description: Upon evaluation the patient this morning with a noted, and substantial drop in her hemoglobin with moderately poor urine output, clinical suspicion was for hemoperitoneum. Patient was having significant postoperative pain. She had a stat CAT scan performed confirming hemoperitoneum. In light of these findings, full informed consent was obtained for exploratory laparotomy. 2 large-bore IVs start sites have been started and she was taken to the operating suite. She was placed in the dorsal supine position and endotracheal intubation performed for the administration of general anesthesia with ease. She received 2 g of Ancef for surgical site prophylaxis. She had a Campbell catheter inserted for continuous bladder drainage. As of note, at the time of insertion of her Campbell catheter, she had 800 cc of clear yellow urine return. She had pneumatic compression stockings for DVT prophylaxis and she was grounded on the right thigh. She was then prepped and draped in the usual sterile fashion and her previous Pfannenstiel skin incision was opened. There was noted to be a small amount of serous fluid in the subcutaneous space. The fascial incision was then opened and there was noted to be well-formed clot superior and inferior to the rectus muscles. Hemoperitoneum was removed both mechanically, and with suction. The entirety of the abdomen was inspected. In a systematic fashion all pedicles from her previous section and salpingectomy were inspected. Starting with the left fallopian tube pedicle site hemostasis was noted. At the uterine incision the uterine incision was well approximated. There was a small amount of adherent clot which was removed and a small amount of blood ooze was noted. There was no active bleeding. The right fallopian tube pedicle was then inspected and also noted to be hemostatic. At this point with no active bleeding the entirety of the abdomen and pelvis were irrigated with copious amounts of normal saline to remove all old blood and clot. At this point, again in a systematic fashion both fallopian tube pedicles and the uterine pedicles were inspected. Again there is noted to be a very minor amount of ooze from the uterine incision which would be expected. In light of this, and her previous substantial blood loss, Surgicel was placed and remained in place for approximately 3 minutes. Surgicel was then removed and Floseal placed across the uterine incision. Again all sites were noted to be hemostatic. With no active bleeding noted, decision was made to close the fascia. There is 1 area at the rectus muscle which had a small amount of bleeding. This was oversewn with a single stitch of 0 Monocryl suture and hemostasis achieved. I do not feel that this was a significant source of bleeding, however in light of her previous blood loss meticulous attention to all areas were again performed. The fascial incision was then closed using 0 Vicryl suture in a running fashion. Subcutaneous tissue irrigated again with copious amounts of normal saline and subcu space closed with 3-0 Vicryl suture. The skin edge was reapproximated in a subcuticular fashion and a herb dressing was placed. Patient awoke from anesthesia with ease and was taken to the postanesthesia care unit with a Campbell catheter draining clear yellow urine in stable condition. Intraoperatively she had approximately 100 cc of clear yellow urine during the 1 hour surgical procedure. She did receive 2 units of packed red blood cells and 2 units of cryoprecipitate. EBL: 500 cc of hemoperitoneum, clot and old blood, with approximately 2 potentially 100 cc of new or bleeding from surgical site oozing. Fluids: Crystalloid per anesthesia Complications: None apparent Implants: None Pathology: None sent
--- NOTE | 2022-06-25 10:45 | W.ANESPOSTOP ---
Postoperative Evaluation Date, Time and Location Date Performed: 06/25/22 Time Performed: 10:45 Patient Location: PACU Vital Signs Most Recent Imported Vital Signs: Most Recent Vital Signs Temp Pulse Resp BP Pulse Ox 36.8 C 88 16 106/61 98 06/25/22 07:30 06/25/22 07:30 06/25/22 02:20 06/25/22 07:30 06/25/22 02:20 Most Recent Vital Signs Temp Pulse BP 36.9 C 73 111/59 L 06/24/22 06:27 06/24/22 08:58 06/24/22 08:58 Pain Score Most Recent Pain Score: Most Recent Pain Score Pain Level [Abdomen] 6 06/25/22 07:30 Assessment Mental Status: Arousable with meaningful communication Airway and Respiratory Function: Patent airway with normal (patient baseline) respiratory exam Cardiovascular Function: Hemodynamically Stable Hydration Status: Adequately Hydrated Nausea & Vomiting: No Nausea or Vomiting Pain: Pain is tolerable per patient Peripheral Nerve Block: Patient did not receive a nerve block Postoperative Comments:: In PACU, stable. 2nd FFP to be hung.
[2022-06-25] MEDS: HYDROmorphone 2 MG/ML SYR IVP (10:57)
[2022-06-25 11:08] LABS: Abs Immature Grans 0.12 10^3/uL (0.0-0.06); Absolute Basophil Count 0.05 10^3/uL (0.0-0.2); Absolute Lymphocyte Count 4.31 10^3/uL (1.2-3.4); Absolute Monocyte Count 1.11 10^3/uL (0.1-0.8); Absolute Neutrophil Count 9.72 10^3/uL (1.2-6.7); Basophils % 0.3; Eosinophils % 0.5; Immature Grans % 0.8; MCH 29.1 pg (27.0-33.0); MCHC 32.4 % (32.0-36.0); MCV 90 fL (80-95); MPV 10.5 fL (8.0-11.0); Monocytes % 7.2; Neutrophils % 63.2; Platelet Count 268 10^3/uL (130-400); RBC 1.99 10^6/uL (3.93-5.22); RDW 13.9 % (11.7-14.6); RDW-SD 45.1 fL; WBC 15.38 10^3/uL (4.4-10.8)
[2022-06-25 11:31] LABS: HCT 17.9 % (36.0-46.0); HGB 5.8 g/dL (11.2-15.7)
[2022-06-25 11:32] LABS: Absolute Eosinophil Count 0.07 10^3/uL (0.0-0.7)
[2022-06-25 11:33] LABS: Diff Comment Diff Reviewed
[2022-06-25] MEDS: Lactated Ringers 1,000 ML 125 ML IV ×2 (12:12→19:50)
[2022-06-25 12:59] LABS: Abs Immature Grans 0.11 10^3/uL (0.0-0.06); Absolute Basophil Count 0.05 10^3/uL (0.0-0.2); Absolute Eosinophil Count 0.11 10^3/uL (0.0-0.7); Absolute Monocyte Count 1.09 10^3/uL (0.1-0.8); Basophils % 0.3; Eosinophils % 0.7; Immature Grans % 0.7; Lymphocytes % 30.5; MCH 29.6 pg (27.0-33.0); MCHC 32.8 % (32.0-36.0); MCV 91 fL (80-95); MPV 9.7 fL (8.0-11.0); Monocytes % 7.1; Neutrophils % 60.7; Platelet Count 279 10^3/uL (130-400); RBC 1.99 10^6/uL (3.93-5.22); RDW 13.8 % (11.7-14.6); RDW-SD 44.8 fL; WBC 15.36 10^3/uL (4.4-10.8)
[2022-06-25 13:01] LABS: HGB 5.9 g/dL (11.2-15.7)
[2022-06-25 13:02] LABS: Absolute Lymphocyte Count 4.69 10^3/uL (1.2-3.4); Absolute Neutrophil Count 9.31 10^3/uL (1.2-6.7); INR 0.9 (0.9-1.1); PTT Activated 22.3 sec (21.5-31.9); Prothrombin Time 9.1 sec (9.3-11.0)
[2022-06-25 13:11] LABS: HCT 23.2 % (36.0-46.0); HGB 7.7 g/dL (11.2-15.7); MCH 29.7 pg (27.0-33.0); MCHC 33.2 % (32.0-36.0); MCV 90 fL (80-95); Platelet Count 219 10^3/uL (130-400); RBC 2.59 10^6/uL (3.93-5.22); RDW 13.9 % (11.7-14.6); RDW-SD 45.1 fL; WBC 14.93 10^3/uL (4.4-10.8)
[2022-06-25] MEDS: HYDROmorphone 2 MG/ML SYR 1 MG IVP (13:25)
--- NOTE | 2022-06-25 15:20 | PGE_ITS ---
Date of Service Date of service: 06/25/22 Time of Service: 15:20 Assessment and Plan Assessment and plan (1) Status post repeat low transverse section: Status: Acute Assessment and plan: Postoperative day #1 status post repeat low transverse section with bilateral tubal ligation, salpingectomy. She had a postoperative bleed with hemoperitoneum. She was returned to the OR today for evacuation of hemoperitoneum with no evidence of active bleeding. Thus far, she has received 2 units of packed red blood cells and 2 units of fresh frozen plasma. Her most recent hemoglobin was 7.7. She is mildly tachycardic but not symptomatic. At this point she will receive 1/3 unit of packed red blood cells. We will check a CBC at 8 PM, and again in the morning. She will continue her frequent vital signs, and accurate I's and O's. Incentive spirometer to the bedside. Pneumatic compression stockings for DVT prophylaxis. We will continue to monitor closely. All questions were answered for her and her family. (2) Hemoperitoneum: Status: Acute Exam Const General: cooperative, healthy appearing, comfortable, no acute distress, well developed and well groomed Nutritional Appearance: average body habitus Orientation: alert Eyes General: appearance normal, both eyes and all related structures Neck Neck: normal visual inspection, supple and nontender Resp Effort & Inspection: normal respiratory effort and no audible wheezes Auscultation: clear to auscultation bilaterally GI Inspection: normal to inspection and distended (mild) Palpation: soft, not firm and no guarding Extrem General: no calf tenderness and edema (1+) Laterality: bilateral Objective Last Vital Signs Temp 98.1 F 06/25/22 14:01 Pulse 103 H 06/25/22 14:01 Resp 16 06/25/22 14:01 BP 126/80 06/25/22 14:01 Pulse Ox 97 06/25/22 14:01 Laboratory Results - last 24 hr 06/22/22 06/22/22 06/25/22 14:02 14:02 06:00 WBC 12.87 H 15.38 H RBC 3.68 L 1.99 L Hgb 10.7 L 5.8 L* D Hct 32.9 L 17.9 L* MCV 89 90 MCH 29.1 29.1 MCHC 32.5 32.4 RDW 13.4 13.9 Plt Count 310 268 MPV 9.8 10.5 Immature Gran % 0.9 0.8 Neutrophils % 62.3 63.2 Band Neutrophils % Lymphocytes % 27.0 28.0 Atypical Lymphs % Monocytes % 7.4 7.2 Eosinophils % 1.9 0.5 Basophils % 0.5 0.3 Metamyelocytes % Myelocytes % Promyelocytes % Other Cells % Nucleated RBC % 0.0 0.0 Absolute Neutrophils 8.02 H 9.72 H Absolute Lymphocytes 3.47 H 4.31 H Absolute Monocytes 0.95 H 1.11 H Absolute Eosinophils 0.24 0.07 Absolute Basophils 0.06 0.05 RBC Morphology Polychromasia Hypochromasia Poikilocytosis Basophilic Stippling Anisocytosis Microcytosis Macrocytosis Spherocytes Tear Drop Cells Ovalocytes Stomatocytes [place] Bodies Haily Cells/Echinocytes Acanthocytes (Spur) Schistocytes PT INR APTT Patient ABO/Rh A Positive Antibody Screen NEGATIVE Crossmatch See Detail 06/25/22 06/25/22 06/25/22 07:35 07:35 12:59 WBC 15.36 H 14.93 H RBC 1.99 L 2.59 L Hgb 5.9 L* 7.7 L Hct 18.0 L* 23.2 L MCV 91 90 MCH 29.6 29.7 MCHC 32.8 33.2 RDW 13.8 13.9 Plt Count 279 219 MPV 9.7 10.0 Immature Gran % 0.7 Neutrophils % 60.7 Band Neutrophils % Lymphocytes % 30.5 Atypical Lymphs % Monocytes % 7.1 Eosinophils % 0.7 Basophils % 0.3 Metamyelocytes % Myelocytes % Promyelocytes % Other Cells % Nucleated RBC % 0.0 Absolute Neutrophils 9.31 H Absolute Lymphocytes 4.69 H Absolute Monocytes 1.09 H Absolute Eosinophils 0.11 Absolute Basophils 0.05 RBC Morphology Polychromasia Hypochromasia Poikilocytosis Basophilic Stippling Anisocytosis Microcytosis Macrocytosis Spherocytes Tear Drop Cells Ovalocytes Stomatocytes [place] Bodies [place] Cells/Echinocytes Acanthocytes (Spur) Schistocytes PT 9.1 L INR 0.9 APTT 22.3 Patient ABO/Rh Antibody Screen Crossmatch 06/25/22 06/25/22 18:00 Unknown WBC Cancelled RBC Cancelled Hgb Cancelled Hct Cancelled MCV Cancelled MCH Cancelled MCHC Cancelled RDW Cancelled Plt Count Cancelled MPV Cancelled Immature Gran % Cancelled Neutrophils % Cancelled Band Neutrophils % Cancelled Lymphocytes % Cancelled Atypical Lymphs % Cancelled Monocytes % Cancelled Eosinophils % Cancelled Basophils % Cancelled Metamyelocytes % Cancelled Myelocytes % Cancelled Promyelocytes % Cancelled Other Cells % Cancelled Nucleated RBC % Cancelled Absolute Neutrophils Cancelled Absolute Lymphocytes Cancelled Absolute Monocytes Cancelled Absolute Eosinophils Cancelled Absolute Basophils Cancelled RBC Morphology Cancelled Polychromasia Cancelled Hypochromasia Cancelled Poikilocytosis Cancelled Basophilic Stippling Cancelled Anisocytosis Cancelled Microcytosis Cancelled Macrocytosis Cancelled Spherocytes Cancelled Tear Drop Cells Cancelled Ovalocytes Cancelled Stomatocytes Cancelled [place] Bodies Cancelled Haily Cells/Echinocytes Cancelled Acanthocytes (Spur) Cancelled Schistocytes Cancelled PT INR APTT Patient ABO/Rh Cancelled Antibody Screen Crossmatch Time Spent with Patient Time Spent with Patient: 25-34 minutes Time was spent: preparing to see the patient(eg.review tests), obtaining and/or reviewing separately otained hiistory, ordering medications,tests, procedures, referring, communicating with other health critical care nurse practitioner, indepentently interpreting results and counseling the patient
[2022-06-25] MEDS: Docusate Sodium 100 MG CAP PO (19:50)
[2022-06-25 20:22] LABS: HCT 24.6 % (36.0-46.0); HGB 8.5 g/dL (11.2-15.7); MCH 30.2 pg (27.0-33.0); MCHC 34.6 % (32.0-36.0); MCV 88 fL (80-95); MPV 9.8 fL (8.0-11.0); Platelet Count 213 10^3/uL (130-400); RBC 2.81 10^6/uL (3.93-5.22); RDW 14.1 % (11.7-14.6); RDW-SD 44.7 fL
[2022-06-26 00:24] LABS: Abs Immature Grans 0.09 10^3/uL (0.0-0.06); Absolute Basophil Count 0.04 10^3/uL (0.0-0.2); Absolute Eosinophil Count 0.03 10^3/uL (0.0-0.7); Absolute Monocyte Count 0.92 10^3/uL (0.1-0.8); Absolute Neutrophil Count 9.92 10^3/uL (1.2-6.7); Basophils % 0.3; Eosinophils % 0.2; HCT 23.9 % (36.0-46.0); HGB 8.2 g/dL (11.2-15.7); Immature Grans % 0.6; Lymphocytes % 23.5; MCHC 34.3 % (32.0-36.0); MCV 88 fL (80-95); MPV 9.9 fL (8.0-11.0); Monocytes % 6.4; Platelet Count 199 10^3/uL (130-400); RBC 2.73 10^6/uL (3.93-5.22); RDW 14.3 % (11.7-14.6); RDW-SD 45.1 fL; WBC 14.37 10^3/uL (4.4-10.8)
[2022-06-26 00:27] LABS: Absolute Lymphocyte Count 3.38 10^3/uL (1.2-3.4)
[2022-06-26] MEDS: oxyCODONE 5 mg/Acetaminophen 325 mg TAB PO ×3 (01:51→16:17)
[2022-06-26 01:52] VITALS: BP 119/75; PULSE 73; RESP 19
[2022-06-26] MEDS: Lactated Ringers 1,000 ML 125 ML IV (03:55)
[2022-06-26 07:45] VITALS: BP 110/70; PULSE 72; RESP 16; TEMP 36.8; O2SAT 93
[2022-06-26] MEDS: Prenatal Multivitamin w/CA,FE TAB 1 TAB PO (08:05)
[2022-06-26] MEDS: Docusate Sodium 100 MG CAP PO ×2 (08:05→20:10)
--- NOTE | 2022-06-26 09:26 | OBPPV_ITS ---
Date of service: 06/26/22 Time of Service: 09:26 Assessment and Plan Assessment and plan (1) Status post repeat low transverse section: Status: Acute Assessment and plan: Patient is 2 days status post repeat low transverse section with bilateral salpingectomy. Her postoperative course was complicated by intra- abdominal bleed with hemoperitoneum. She was returned to the operating room postoperative day #1 for exploratory laparotomy. At that time she had removal of approximately 500 cc of blood and clot. There was no active source of bleeding. In light of her symptomatic postoperative anemia, she received a total of 3 units of packed red blood cells for stable hemoglobin this morning at 8.2. She is doing well , and postoperative. There are no signs or symptoms of ongoing blood loss. She remained stable. She will increase her activity, and her diet. We will work on bowel function today. She will continue to work on breast-feeding. I would anticipate discharge in the next 24 to 48 hours if she remains stable and progressing appropriately. (2) Hemoperitoneum: Status: Acute Assessment and plan: Patient had a return to surgery and is postoperative day #1 today. Subjective Subjective Interval history: Patient seen and examined this morning. Overall doing well. Earlier this morning she had an episode of severe lower abdominal pain. This was reported to the on-call physician, and her Campbell catheter was removed. This significantly diminished her pain and overall this morning she is doing well. She rates her pain at a 2 out of 10. She has no nausea or vomiting. She has not yet passed flatus though she is hungry and eating without difficulty. She has been up to a chair without dizziness. [place] baby status: Doing well Exam Physical Exam Vital signs: Temp Pulse Resp BP Pulse Ox 98.2 F 72 16 110/70 93 06/26/22 07:45 06/26/22 07:45 06/26/22 07:45 06/26/22 07:45 06/26/22 07:45 Vital Signs Reviewed: Yes Narrative: Vital signs are stable. Not tachycardic. Urine output is appropriate. Constitutional Constitutional: no acute distress and average body habitus HEENT Exam HEENT Exam: Normal Neck Exam Neck Exam: Normal Respiratory Exam Respiratory Exam: Normal Detailed Respiratory Exam Respiratory: Absent decreased breath sounds, rales, rhonchi, wheezes or crackles Cardiovascular Exam Cardiovascular Exam: Normal Detail Cardiovascular Exam Cardiovascular: Present RRR, S1 and S2; Absent murmur Abdominal Exam Abdomen: Tender Comments: Normal active bowel sounds. Mild distention. Extremities Exam Extremity Exam: Normal and Edema (Scant, bilateral); negative Calf Tenderness Results Hemoglobin/Hematocrit: Hgb 8.2 g/dL (11.2-15.7) L 06/26/22 00:15 Hct 23.9 % (36.0-46.0) L 06/26/22 00:15 Abnormal Lab Findings: Abnormal Labs 06/22/22 06/22/22 06/25/22 14:02 14:02 06:00 WBC 12.87 H 15.38 H RBC 3.68 L 1.99 L Hgb 10.7 L 5.8 L* D Hct 32.9 L 17.9 L* Absolute Neutrophils 8.02 H 9.72 H Absolute Lymphocytes 3.47 H 4.31 H Absolute Monocytes 0.95 H 1.11 H PT Crossmatch See Detail 06/25/22 06/25/22 06/25/22 07:35 07:35 12:59 WBC 15.36 H 14.93 H RBC 1.99 L 2.59 L Hgb 5.9 L* 7.7 L Hct 18.0 L* 23.2 L Absolute Neutrophils 9.31 H Absolute Lymphocytes 4.69 H Absolute Monocytes 1.09 H PT 9.1 L Crossmatch 06/25/22 06/26/22 20:10 00:15 WBC 15.60 H 14.37 H RBC 2.81 L 2.73 L Hgb 8.5 L 8.2 L Hct 24.6 L 23.9 L Absolute Neutrophils 9.92 H Absolute Lymphocytes Absolute Monocytes 0.92 H PT Crossmatch
[2022-06-26] MEDS: Ibuprofen 600 MG TAB PO ×3 (10:45→22:18)
[2022-06-26] MEDS: Acetaminophen 500 MG TAB PO (10:45)
[2022-06-26] MEDS: Simethicone 80 MG CHEW 160 MG PO ×4 (11:36→22:18)
[2022-06-26 12:10] VITALS: BP 120/75; PULSE 81; RESP 16; TEMP 37.2; O2SAT 94
[2022-06-26 15:30] VITALS: BP 121/77; PULSE 71; RESP 16; TEMP 36.7; O2SAT 97
[2022-06-26 20:14] VITALS: BP 114/72; PULSE 68; RESP 17; TEMP 36.8; O2SAT 98
[2022-06-26 23:05] VITALS: BP 114/75; PULSE 67
[2022-06-27] MEDS: Ibuprofen 600 MG TAB PO (03:56)
[2022-06-27 03:58] VITALS: BP 116/77; PULSE 66
[2022-06-27 09:05] VITALS: BP 125/82; PULSE 73; RESP 16; TEMP 36.8; O2SAT 96
[2022-06-27] MEDS: Prenatal Multivitamin w/CA,FE TAB 1 TAB PO (09:36)
[2022-06-27] MEDS: Docusate Sodium 100 MG CAP PO (09:36)
--- NOTE | 2022-06-27 11:18 | OBPPV_ITS ---
Date of service: 06/27/22 Time of Service: 11:18 Assessment and Plan Assessment and plan (1) Status post repeat low transverse section: Status: Acute Assessment and plan: Patient is and postoperative day #3 from her repeat low-transverse section with bilateral salpingectomy, and postoperative day #2 status post return to the operating room for exploratory laparotomy to control pelvic hemorrhage and remove hemoperitoneum. She has had no further episodes of bleeding, and no concern for ongoing intra-abdominal bleeding. She is doing well today, ambulating, tolerating regular diet and oral pain medication with stable vital signs and wishes for disposition to home. She will be dispositioned to home. She will follow-up in the office in 1 week for removal of her herb dressing, sooner if needed. All of her questions were answered today. (2) Hemoperitoneum: Status: Acute Assessment and plan: Postoperative return to the OR for hemoperitoneum with evacuation of clot. No site of active bleeding identified. Subjective Subjective Interval history: Patient seen and examined this morning. Feeling well. Pain is well controlled. She reports a 1 out of 10 on the pain scale. She has been ambulatory. She is tolerating a regular diet and oral pain medication. She has had a bowel movement. She is breast-feeding with relative ease. [place] baby status: Doing well and Strong Bonding Observed Exam Physical Exam Vital signs: Temp Pulse Resp BP Pulse Ox 98.2 F 73 16 125/82 96 06/27/22 09:05 06/27/22 09:05 06/27/22 09:05 06/27/22 09:05 06/27/22 09:05 Vital Signs Reviewed: Yes Constitutional Constitutional: no acute distress and average body habitus HEENT Exam HEENT Exam: Normal Neck Exam Neck Exam: Normal Respiratory Exam Respiratory Exam: Normal Cardiovascular Exam Cardiovascular Exam: Normal Abdominal Exam Comments: Soft, nondistended, no guarding, rebound, or rigidity. Incision is dressed with herb dressing. Functioning appropriately. Fundal Exam Fundus: Below Umbilicus and Firm Extremities Exam Extremity Exam: Normal and Edema (2+, bilateral, to the knee.) Skin Exam Skin Exam: Normal Neurological Exam Neurological Exam: Normal Psychiatric Exam Psychiatric Exam: Normal Results Hemoglobin/Hematocrit: Hgb 8.2 g/dL (11.2-15.7) L 06/26/22 00:15 Hct 23.9 % (36.0-46.0) L 06/26/22 00:15 Abnormal Lab Findings: Abnormal Labs 06/22/22 06/22/22 06/25/22 14:02 14:02 06:00 WBC 12.87 H 15.38 H RBC 3.68 L 1.99 L Hgb 10.7 L 5.8 L* D Hct 32.9 L 17.9 L* Absolute Neutrophils 8.02 H 9.72 H Absolute Lymphocytes 3.47 H 4.31 H Absolute Monocytes 0.95 H 1.11 H PT Crossmatch See Detail 06/25/22 06/25/22 06/25/22 07:35 07:35 12:59 WBC 15.36 H 14.93 H RBC 1.99 L 2.59 L Hgb 5.9 L* 7.7 L Hct 18.0 L* 23.2 L Absolute Neutrophils 9.31 H Absolute Lymphocytes 4.69 H Absolute Monocytes 1.09 H PT 9.1 L Crossmatch 06/25/22 06/26/22 20:10 00:15 WBC 15.60 H 14.37 H RBC 2.81 L 2.73 L Hgb 8.5 L 8.2 L Hct 24.6 L 23.9 L Absolute Neutrophils 9.92 H Absolute Lymphocytes Absolute Monocytes 0.92 H PT Crossmatch
--- NOTE | 2022-06-27 11:28 | DSE_ITS ---
Date of service: 06/27/22 Time of Service: 11:28 DS: Diagnosis Discharge Diagnosis (1) Status post repeat low transverse section: Status: Acute Asessment and Plan: Patient is postoperative day #3 status post repeat low transverse section with bilateral salpingectomy. Her and tubal ligation were uncomplicated, however postoperative day #1 she was noted to be hemodynamically unstable with a significant drop in hemoglobin and suspected hemoperitoneum. For this reason she was taken back to the operating room for exploratory laparotomy for evacuation of hemoperitoneum. At the time of her surgical procedure there was no site of her bleeding, and no active bleeding noted. At this point, she had an uncomplicated recovery after receiving 3 units of packed red blood cells, and 2 units of fresh frozen plasma. From this point on she remained hemodynamically stable. Her bowel and bladder function returned to normal. She had appropriate vital signs. She was able to ambulate, tolerate a regular diet and oral pain medication with stable vital signs. She will be followed up in the office in 1 week for removal of her herb dressing, and sooner as needed. (2) Hemoperitoneum: Status: Acute Discharge Plan Disposition Patient Disposition: Home Condition: Good Discharge Details Reason For Visit: Delivery Admit Date/Time: 12 05:35 Admit Provider: Zuleima Schwarz Attending Provider: Zuleima Schwarz Primary Care Provider: Deb Garduno Hospital Course Hospital Course: Patient underwent a repeat low-transverse section as scheduled with bilateral salpingectomy. Preoperatively, we know she was at high risk for intraoperative hemorrhage and had 2 IV sites and appropriate oxy paddock medications. She had an uncomplicated section through her previous Pfannenstiel skin incision with bilateral salpingectomy. She had IVs removed and Holliday catheter discontinued postoperative day 0. Upon rounds early postoperative day #1, she was noted to have hemoglobin of 5.9 with unstable vital signs. Her abdomen at that time was somewhat distended and she had a significant amount of pain. She was typed and crossed for 2 units of packed red blood cells. She had a stat CT scan of her abdomen pelvis confirming hemoperitoneum and she was taken urgently back to the OR for exploratory laparotomy. At the time of her exploratory laparotomy there was no active bleeding noted, and approximately 800 cc of old blood and clot in the abdomen, and below the fascia. This was all cleared, and the patient had no surgical complications from this aspect. In light of the fact that she had had a second surgical procedure, herb dressing was placed to decrease risk of wound infection. The remainder of her postoperative course was uncomplicated. She did receive a total of 3 units of packed red blood cells and 2 units of fresh frozen plasma. She was discharged home postoperative day #3 from her , postoperative day #2 from her exploratory laparotomy. She had a discharge hemoglobin of 8.2, stable vital signs. She will be seen back in the office in 5 days, approximately 1 week for removal of her herb dressing and posto perative care. She will have ibuprofen, Percocet, Colace sent to the pharmacy for her. Home Meds and New Rx's Prescriptions: New ibuprofen 800 mg tablet 800 mg PO Q8H Qty: 30 2RF oxycodone-acetaminophen [Percocet] 5-325 mg tablet 1 tab PO ONCE Qty: 10 0RF docusate sodium [Colace] 100 mg capsule 100 mg PO DAILY Qty: 20 1RF Continued prenat.vits,aleyda,pow-dvoe-afngq Tablet 1 tab PO DAILY Discharge Instructions Stand Alone Forms: BC Instructions, BC Discharge Instruc Activity:: No heavy lifting. No noam Equipment/Supplies:: No Equipment Needed Diet:: As Tolerated Discharge Orders Discharge Orders: Discharge Order (Routine); Ordered 06/27/22 Ordered By: Zuleima Schwarz OB:VINCE Summary Contraception Discussed Contraception Discussed: Yes Contraceptive Plan: Tubal Ligation (Completed at time of ), [place] Gender-Baby A: Female weight: 6 lb 14.055 oz Status at Discharge Functional status at discharge: independent ambulation Overall status at discharge: patient is progressing back to baseline Mental Status: mental status grossly normal Speech and Movement: speech and movement normal Mood: congruent mood Affect: normal affect Exam Physical Exam Vital signs: Temp Pulse Resp BP Pulse Ox 98.2 F 73 16 125/82 96 06/27/22 09:05 06/27/22 09:05 06/27/22 09:05 06/27/22 09:05 06/27/22 09:05 Narrative: CVA physical exam from progress note dated 06/27/2022 [facility] All Active Problems Hemoperitoneum (Acute) Status post repeat low transverse section (Acute) Repeat low-transverse section with previous section, and breech presentation. 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 History of marijuana use (Acute) Anxiety (Chronic) sertraline in the past History of hypothyroidism (Acute) BMI 31.0-31.9,adult (Acute) Elevated glucose (Acute) LGSIL on Pap smear of cervix (Acute) Colpo on 01/30/22 - repeat at 6 wks PP visit. Medical History Early stage of History of miscarriage Surgical History Previous section 35 weeks, breech Status post hysteroscopic resection of uterine septum June [address] [facility] Family History Maternal Grandmother Diabetes Heart disease Hypertension Maternal Grandfather Diabetes Mother Diabetes Gastric bypass status for obesity Social History Smoking/Tobacco Use Status: Never Second Hand Exposure: Yes Smoking risk assessment performed?: Yes Alcohol Intake: never Drug use: Daily Substance use type: marijuana Household members: significant other and children Sexually active: Yes Do you think of yourself as: straight/heterosexual Current gender identity: female What is your relationship status?: living with partner Panel score (0-1 are the most socially isolated patients): 1 What type of physical activity do you participate in: none Do you feel safe at home: Yes Do you feel safe in your relationship?: Yes History History 5 Para 1 Hx # Term Pregnancies Multiple births Hx # Pregnancies 1 Ectopic pregnancies AB induced Hx Number of Living Children 1 AB spontaneous 3 Past Pregnancies Del. Date GA/Weeks # Preg Succ Route Wgt Sex Labor Lgth Anesth esia Location [facility] 07/13/13 35 No Yes Male [place] Delivery Date: 07/13/13 Last Updated by: Arabella Glaser CNM PPROM at 35 weeks. no complications from surgery DS: Data Vitals/I&O Vitals and I&O: Vital Signs Temperature 98.2 F 06/27/22 09:05 Temperature Source Tympanic 06/26/22 15:30 Temperature Source Oral 06/27/22 09:05 Pulse 73 06/27/22 09:05 Pulse Rhythm Regular 06/26/22 20:39 Respiratory Rate 16 06/27/22 09:05 Blood Pressure 125/82 06/27/22 09:05 Blood Pressure Mean 96 06/27/22 09:05 Pulse Oximetry 96 06/27/22 09:05 Respiratory End-tidal CO2 38 06/25/22 11:30 Oxygen Delivery Method Room Air 06/26/22 15:30 Oxygen Flow Rate 0 06/26/22 15:30 Pain Level 6 06/26/22 16:17 Comment 1.5 liters 06/25/22 14:01 Intake & Output 06/26/22 06/26/22 06/27/22 11:59 23:59 11:59 Intake Total 1320 / 1670 350 / 1670 Output Total 1200 / 2300 1100 / 2300 250 / 250 Balance 120 / -630 -750 / -630 -250 / -250 Intake: IV 1000 / 1000 Oral 320 / 670 350 / 670 Output: Urine 1200 / 2300 1100 / 2300 250 / 250 Other: Urine Color Yellow [place] Yellow Urine Appearance Clear Clear Sediment Urine Odor None Normal Normal Comment Pt states that her abd hurts and she feels distended. Lower urine output from the holliday. Irrigated holliday with no return. Holliday d/c pt voiding on the commode. Voiding Methods Toilet Toilet
== END 2022-06-27 13:15 | disposition home or self-care (01) | DRG 783 ==
PROVIDERS: Admitting Provider Obstetrics & Gynecology; PCP Internal Medicine; Visit Provider Obstetrics & Gynecology
PROC: 10D00Z1 Extraction of Products of Conception, Low, Open Approach (ICD-10-PCS; CPT 59514; principal; 2022-06-24 07:30)
PROC: 0W3J0ZZ Control Bleeding in Pelvic Cavity, Open Approach (ICD-10-PCS; CPT 49000; principal; 2022-06-25 09:00)
DX: O34.211 Maternal care for low transverse scar from previous cesarean delivery (principal); K66.1 Hemoperitoneum; O72.2 Delayed and secondary postpartum hemorrhage; O99.324 Drug use complicating childbirth; Z3A.38 38 weeks gestation of pregnancy; Z37.0 Single live birth; N85.8 Other specified noninflammatory disorders of uterus; O32.1XX0 Maternal care for breech presentation, not applicable or unspecified; O34.03 Maternal care for unspecified congenital malformation of uterus, third trimester; O99.284 Endocrine, nutritional and metabolic diseases complicating childbirth; E03.9 Hypothyroidism, unspecified; O99.344 Other mental disorders complicating childbirth; F41.9 Anxiety disorder, unspecified; F12.91 Cannabis use, unspecified, in remission; O34.13 Maternal care for benign tumor of corpus uteri, third trimester; Z30.2 Encounter for sterilization; O90.89 Other complications of the puerperium, not elsewhere classified; D50.0 Iron deficiency anemia secondary to blood loss (chronic); O90.81 Anemia of the puerperium
CPT/HCPCS: 59514; 58700; 49020; 36415; 36430; 85027; 86850; 86900; 86901; 86920; 74177; 85025; 85610; 85730; 88302; J0131; J0456; J0690; J1100; J1170; J1885; J2250; J2370; J2405; J2704; J3010; P9016; P9059

== ENCOUNTER 2023-07-16 06:17 | Day surgery (SDC) | payer MEDICAID, SELFPAY ==
--- NOTE | 2023-07-15 17:02 | W.PM.DSUDISC ---
Date of service: 07/16/23 Time of Service: 08:38 Discharge Plan Disposition Patient Disposition: Home Condition: Good Discharge Details Reason For Visit: Laparoscopic cholecystectomy Attending Provider: Alin Kapadia Primary Care Provider: Deb Garduno Home Meds and New Rx's Prescriptions: No Action No Known Home Meds Discharge Instructions Instructions: Laparoscopic Cholecystectomy (DC) Additional Instructions: Jessica, we were able to remove your gallbladder today laparoscopically, just like we talked about in the office. Everything was very straightforward. Hopefully will make a quick recovery. We have attached some general information here regarding laparoscopic cholecystectomy, and included some instructions below. I look forward to seeing you in the office for routine postoperative visit. If you have any questions or need anything in the meantime, please do not hesitate to call. 1. Resume all of your medications. 2. Alternate ice packs and heating pads as needed for pain 3. Alternate Tylenol and ibuprofen every 6 hours for the first 2 days. Then use as needed. I provided a prescription for a medication called tramadol if Tylenol and ibuprofen are not enough to control the pain. 4. Leave bandages in place for 24 hours, then remove. 5. Shower with warm soapy water. Pat dry. Use bandaids if needed to protect your clothing. 6. No soaking or tub baths until I see you in the office. 7. No heavy lifting until I see you in the office. 8.Call the office (or go directly to the emergency room after hours) if you notice any of the following: Develop chills (warm to touch), or if you have a thermometer and your temperature is above 101 Difficulty breathing or difficultly swallowing Persistent vomiting Any bleeding ? exceeding one tablespoon 6. Call your physician if the site where your intravenous was started becomes red, swollen, painful, and warm to touch. Activity:: No heavy lifting Remove Dressings/Wound Care:: 24 hours Shower/Bathe:: 24 hours Diet:: As Tolerated Discharge Orders Discharge Orders: Discharge Order (Routine); Ordered 07/15/23 Ordered By: Alin Kapadia DS: Diagnosis Discharge Diagnosis (1) Biliary dyskinesia: Status: Acute Asessment and Plan: Outpatient postoperative follow-up 10 to 14 days
--- NOTE | 2023-07-15 17:04 | W.PM.OP ---
Date of service: 07/16/23 Time of Service: 08:40 Operative Note Operative Note DATE OF PROCEDURE: 07/16/23 PRE-OP DIAGNOSIS: Biliary dyskinesia POST-OP DIAGNOSIS: same PROCEDURE: Laparoscopic cholecystectomy SURGEON: Alin Kapadia CLEANING TECHNICIAN: Suly Lynch ANESTHESIA TYPE: Local By Surgeon and General LMA/ETT Refer to Anesthesia Record ESTIMATED BLOOD LOSS: 25 PATHOLOGY: other (Gallbladder) COMPLICATIONS: None Patient was transported to: PACU Patient's condition: stable Indications: Jessica is a 33-year-old woman with symptomatic biliary dyskinesia Findings: Small gallbladder Procedure Description: After satisfactory induction of general anesthesia, I prepped and draped the abdomen in usual fashion. Next, I began with a periumbilical incision. I dissected down to the fascia and elevated it with Judith clamps. I incised it sharply. Next, I passed a 12 mm operating port in the umbilical site. I secured it to the fascia with 0 Vicryl stitches. I then insufflated the peritoneal cavity. Next I inserted a 5 mm 30 degree scope and examined the underlying viscera. There was no evidence of injury created upon entry. I then placed the patient in some reverse Trendelenburg and left side down positioning. Then, with the assistance of the laparoscope, I used local anesthetic to anesthetize the midepigastric and 2 right upper quadrant port sites. Under the vision of the laparoscope, I passed 3 more 5 mm ports. I then grasped the gallbladder fundus and elevated cephalad. There were some filmy adhesions of the greater omentum up on the lateral aspect of the gallbladder body and some of the liver. These were taken down with cautery. I began by dissecting the gallbladder infundibulum. With the assistance of indocyanine green visualization, I worked in a lateral to medial fashion. Once I skeletonized the cystic duct and cystic artery, with a satisfactory critical view of safety, I doubly clipped and divided them. I then used electrocautery to dissect the gallbladder off the gallbladder fossa. I passed the gallbladder into an Endo Catch bag and removed it by way of the umbilical site. I examined the surgical field. It was hemostatic. I then removed the 5 mm ports under the vision of the laparoscope. Finally, I removed the umbilical port site and closed the fascia with Vicryl stitches. Sites were irrigated, and the skin was closed with subcuticular stitches. Bandages were applied, patient was awakened from anesthesia, and transferred to the recovery unit.
[2023-07-16] VITALS (10 sets, daily range): BP systolic 103–134; BP diastolic 44–80; PULSE 50–72; RESP 16–25; TEMP 36.3–36.6; O2SAT 94–98; BMI 35.9
[2023-07-16] MEDS: Lactated Ringers 1,000 ML 80 ML IV (06:39)
[2023-07-16] MEDS: Indocyanine green 25 MG VIAL 5 MG IJ (06:40)
[2023-07-16] MEDS: Normal Saline Flush 10 ML SYR IV (06:41)
[2023-07-16] MEDS: Acetaminophen 500 MG TAB 1000 MG PO (06:41)
[2023-07-16] MEDS: Gabapentin 300 MG CAP 600 MG PO (06:41)
[2023-07-16] MEDS: Celecoxib 200 MG CAP PO (06:41)
--- NOTE | 2023-07-16 06:59 | HPE_ITS ---
Assessment and Plan Assessment and plan (1) Biliary dyskinesia: Status: Acute Assessment and plan: Jessica and I had a chance to talk about the plan for laparoscopic cholecystectomy again today. She had no other questions regarding the nature of the operation, or the anticipated recovery. Documents are all in order, and we can proceed with laparoscopic cholecystectomy this morning. History of Present Illness History of Present Illness Chief Complaint: Biliary dyskinesia Narrative: Jessica is a 33-year-old woman who has been experiencing chronic intermittent right upper quadrant abdominal pain. She cannot recall exactly when her symptoms first started, but she has been dealing with it for some time. She suspects some of the symptoms that she had previously, were probably misdiagnosed. Over the past several months, however, she has had increasing frequency of stabbing right upper quadrant pain that radiates to her diaphragm and right shoulder. She also describes it as a sensation of having a bubble in her shoulder. She underwent a HIDA scan that showed a gallbladder ejection fraction of 6%. She is try to modify her diet a little bit, but she is not able to correlate onset of symptoms with any particular type of food or diet characteristic. There is surgical history is most significant for laparoscopic appendectomy, as well as 2 sections, with 1 takeback for bleeding. She is allergic to Bactrim. Since her last office visit, there have been no significant changes to the interval history or physical exam PFSH All Active Problems Biliary dyskinesia (Acute) Right sided abdominal pain (Acute) History of marijuana use (Acute) Anxiety (Chronic) sertraline in the past History of hypothyroidism (Acute) BMI 31.0-31.9,adult (Acute) LGSIL on Pap smear of cervix (Acute) Colpo on 01/30/22 - repeat at 6 wks PP visit. Medical History Septate uterus s/p resection at [facility] June 2021 E/o remaining septum on anatomy sono with placenta attached to it. History of miscarriage Early stage of Surgical History History of tubal ligation History of appendectomy (~03/06/23) Status post repeat low transverse section Repeat low-transverse section with previous section, and breech presentation. Bilateral salpingectomy for sterilization at the time Status post hysteroscopic resection of uterine septum June 2021 at [facility] Previous section 35 weeks, breech Family History Maternal Grandmother Diabetes Heart disease Hypertension Maternal Grandfather Diabetes Mother Diabetes Gastric bypass status for obesity Social History Smoking/Tobacco Use Status: Never Second Hand Exposure: Yes Smoking risk assessment performed?: Yes Alcohol Intake: never Drug use: Daily Substance use type: marijuana Household members: significant other and children Housing: apartment Sexually active: Yes Do you think of yourself as: straight/heterosexual Current gender identity: female What is your relationship status?: living with partner Panel score (0-1 are the most socially isolated patients): 1 What type of physical activity do you participate in: none Do you feel safe at home: Yes Do you feel safe in your relationship?: Yes History History 5 Para 2 Hx # Term Pregnancies 1 Multiple births Hx # Pregnancies 1 Ectopic pregnancies AB induced Hx Number of Living Children 2 AB spontaneous 3 Past Pregnancies Del. Date GA/Weeks # Preg Succ Route Wgt Sex Labor Lgth Anesth esia Location [facility] 07/13/13 35 No Yes Male [place] 06/25/22 38 No Yes 6 lb 14.05 oz Female [facility] Delivery Date: 07/13/13 Last Updated by: Arabella Glaser CNM PPROM at 35 weeks. no complications from surgery Meds Allergies and Home Medications Allergies Allergy/AdvReac Type Severity Reaction Status Date / Time sulfamethoxazole Allergy Anaphylaxis Verified 07/16/23 06:20 [From Bactrim] trimethoprim [From Bactrim] Allergy Anaphylaxis Verified 07/16/23 06:20 Home Medications Medication Instructions Recorded Confirmed Type Unknown [No Known Home Meds] 06/02/23 07/14/23 History Exam Const General: cooperative, healthy appearing and not in acute distress Neck Neck: normal visual inspection, no lymphadenopathy and supple Resp Effort & Inspection: normal respiratory effort Auscultation: clear to auscultation bilaterally Cardio Jugular venous pressure: no JVD Rate: regular rate Rhythm: regular rhythm Heart Sounds: S1 normal and S2 normal GI Inspection: normal to inspection Palpation: soft, no guarding, no hernias and nontender Percussion: normal to percussion Auscultation: normal bowel sounds Neuro General: patient alert, patient awake and patient oriented x3 Psych Appearance: grossly normal Results Last Vital Signs Temp 97.9 F 07/16/23 06:43 Pulse 72 07/16/23 06:43 Resp 16 07/16/23 06:43 BP 123/67 07/16/23 06:43 Pulse Ox 97 07/16/23 06:43
--- NOTE | 2023-07-16 07:16 | ANES.PREOP_ITS ---
General Info Date of Service Date Performed: 07/16/23 Height: 5 ft 5 in Weight: 97.8 kg Body Mass Index (BMI): 35.9 Surgical Procedure: Operation Date: 07/16/23 07:40 Proposed Procedure Side Surgeon p Cholecystectomy Laparoscopic lAin Kapadia MD Pre-Op Diagnosis Post-Op Diagnosis Biliary dyskinesia Meds Allergies and Home Medications Allergies Allergy/AdvReac Type Severity Reaction Status Date / Time sulfamethoxazole Allergy Anaphylaxis Verified 07/16/23 06:20 [From Bactrim] trimethoprim [From Bactrim] Allergy Anaphylaxis Verified 07/16/23 06:20 Home Medication Medication Instructions Recorded Unknown [No Known Home Meds] 06/02/23 Current Visit Medications: Current Medications Generic Name Dose Route Start Last Admin Trade Name Freq PRN Reason Stop Dose Admin Acetaminophen 1,000 mg 07/16/23 06:00 07/16/23 06:41 Acetaminophen 500 Mg Tab PO 07/16/23 16:00 1,000 mg PREOP MIYA Administration Celecoxib 200 mg 07/16/23 06:00 07/16/23 06:41 Celecoxib 200 Mg Cap PO 07/16/23 16:00 200 mg PREOP MIYA Administration Gabapentin 600 mg 07/16/23 06:00 07/16/23 06:41 Gabapentin 300 Mg Cap PO 07/16/23 16:00 600 mg PREOP MIYA Administration Hydromorphone HCl 0.2 mg 07/15/23 17:04 Hydromorphone 2 Mg/Ml Syr IVP 08/14/23 17:03 Q1H PRN PRN Ringer's Solution 1,000 mls @ 80 mls/hr 07/16/23 06:00 07/16/23 06:39 IV 08/14/23 23:59 80 mls/hr INFUSION MIYA Administration Cefazolin Sodium/Dextrose 2 gm in 50 mls @ 100 mls/hr 07/16/23 06:00 Ancef Duplex IVPB 07/16/23 16:00 PREOP MIYA IV Miscellaneous Supplies 1 each 07/16/23 06:00 Iv Access IV 08/14/23 23:59 DIRECTED MIYA Indocyanine Green 5 mg 07/16/23 06:00 07/16/23 06:40 Indocyanine Green 25 Mg Vial IJ 07/16/23 16:00 5 mg PREOP MIYA Administration Sodium Chloride 0 ml 07/16/23 06:00 07/16/23 06:41 Normal Saline Flush 10 Ml Syr IV 08/14/23 23:59 10 ml PRN PRN Administration Sodium Chloride 0 ml 07/16/23 06:00 Normal Saline 10 Ml Vial IJ 08/14/23 23:59 DIRECTED PRN Sterile Water 0 ml 07/16/23 06:00 Water,Injection,Sterile 10 Ml Vial IJ 08/14/23 23:59 DIRECTED PRN Tramadol HCl 50 mg 07/15/23 17:04 Tramadol 50 Mg Tab PO 08/14/23 17:03 Q6H PRN PRN Pain PFSH Active Problems Active Problems: Problem Status Onset Code Biliary dyskinesia K82.8 Right sided abdominal pain R10.9 History of marijuana use F12.91 Anxiety F41.9 History of hypothyroidism Z86.39 BMI 31.0-31.9,adult Z68.31 LGSIL on Pap smear of cervix R87.612 Medical History Medical History Septate uterus s/p resection at [facility] June 2021 E/o remaining septum on anatomy sono with placenta attached to it. History of miscarriage Early stage of Surgical History Surgical History History of tubal ligation History of appendectomy (~03/06/23) Status post repeat low transverse section Repeat low-transverse section with previous section, and breech presentation. Bilateral salpingectomy for sterilization at the time Status post hysteroscopic resection of uterine septum June 2021 at [facility] Previous section 35 weeks, breech Tobacco Smoking/Tobacco Use Status: Never Second hand exposure: Yes Alcohol Alcohol Intake: never Substance Use Substance use: Daily Substance use type: marijuana Prental History History 5 Para 2 Hx # Term Pregnancies 1 Multiple births Hx # Pregnancies 1 Ectopic pregnancies AB induced Hx Number of Living Children 2 AB spontaneous 3 Past Pregnancies Del. Date GA/Weeks # Preg Succ Route Wgt Sex Labor Lgth Anesth esia Location [facility] 07/13/13 35 No Yes Male [place] 06/25/22 38 No Yes 3119.865 g Female [facility] Delivery Date: 07/13/13 Last Updated by: Arabella Glaser CNM PPROM at 35 weeks. no complications from surgery Vital Signs and Lab Results Vital Signs Most Recent Vital Signs in EMR: Most Recent Vital Signs Temp Pulse Resp BP Pulse Ox 36.6 C 72 16 123/67 97 07/16/23 06:43 07/16/23 06:43 07/16/23 06:43 07/16/23 06:43 07/16/23 06:43 Point of Care Results Point of Care Results: POC- Test(urine) Negative 07/16/23 07:00 Lab Results Blood Type / Crossmatch: No Data to Display Complete Blood Count: No Data to Display Complete Metabolic Panel: No Data to Display Liver Function Panel: No Data to Display Coagulation Panel: No Data to Display Cardiac Panel: No Data to Display Arterial Blood Gas: No Data to Display Venous Blood Gas: No Data to Display Pancreas Panel: No Data to Display Thyroid Panel: No Data to Display Infectious Disease: No Data to Display Blood Cultures: No Data to Display Toxicology Panel: No Data to Display Panel: No Data to Display Anesthesia Assessment and Plan Anesthesia History Personal History: No History of Anesthesia Complications Family History: No Family History of Anesthesia Complications Exercise Tolerance Exercise Tolerance: Metabolic Equivalents>4 Pertinent Negatives Pertinent Negatives: No Symptoms of GERD, No Major Cardiovascular Symptoms or Complaints, No Major Pulmonary Symptoms or Complaints and No History of CVA/TIA Cardiac & Pulmonary Exam Cardiac Exam: Normal S1/S2 Heart Sounds Pulmonary Exam: Clear Bilateral Breath Sounds Implantable Cardiac Device Does patient have a Pacemaker or an ICD?: No Airway Exam Known Difficult Airway: No Mallampati Class: 2 Mouth Opening: Normal (> 3cm) Thyromental Distance: Greater than 3 cm Neck Range of Motion: Full ROM Neck Circumference: Normal Teeth Condition: Normal Dentition ASA Classification ASA Score: ASA 2 Emergency Case?: No NPO Status NPO Status: NPO Clears >2 hours, Solids >8 hours Status Status: Negative HCG Anesthesia Plan Resuscitation Status: Full Code Anesthesia Technique: General Anesthesia Airway Planned: Endotracheal Tube Monitors Used: Standard Monitors
[2023-07-16] MEDS: ceFAZolin 2 GM/50 ML BAG IVPB (07:38)
[2023-07-16] MEDS: Bupivacaine 0.25% Pres-Free 30 ML VIAL (07:55)
--- NOTE | 2023-07-16 08:25 | GB_PTH ---
PATIENT: Jessica Hernandez LOC: KIP U#:[id number] AGE/SX: 33/F ROOM: RE07/16/[address]: Alin Kapadia MD : 1990 BED: DIS: 07/16/2023 SPEC #: [id number] RECD: 07/16/23 12:53 STATUS: LYNDSEY REQ #: [id number] LIZZETH: 07/16/23 08:[address]: Alin Kapadia DEPT: Surgical Specimen RECD BY: Mirian Quick ENTERED: 07/16/23 12:55 SP TYPE: GB OTHR DR: Deb Garduno Tissues: 1 - GALLBLADDER Procedures: GROSS AND MICRO LEVEL 3 Comments: [id number]
[2023-07-16] MEDS: fentaNYL 100 MCG/2 ML VIAL IVP (09:17)
[2023-07-16] MEDS: traMADol 50 MG TAB PO (10:26)
[2023-07-16] MEDS: oxyCODONE 5 MG TAB PO (11:26)
--- NOTE | 2023-07-16 12:19 | W.ANESPOSTOP ---
Postoperative Evaluation Date, Time and Location Date Performed: 07/16/23 Time Performed: 12:19 Patient Location: Day Surgery Unit Vital Signs Most Recent Imported Vital Signs: Most Recent Vital Signs Temp Pulse Resp BP Pulse Ox 36.6 C 55 L 18 134/80 96 07/16/23 10:36 07/16/23 10:36 07/16/23 10:36 07/16/23 10:36 07/16/23 10:36 Pain Score Most Recent Pain Score: Most Recent Pain Score Pain Level 8 07/16/23 10:36 Assessment Mental Status: Awake (Alert & Oriented to Patient Baseline) Airway and Respiratory Function: Patent airway with normal (patient baseline) respiratory exam Cardiovascular Function: Hemodynamically Stable Hydration Status: Adequately Hydrated Nausea & Vomiting: No Nausea or Vomiting Pain: Pt. Denies Any Pain Peripheral Nerve Block: Patient did not receive a nerve block
== END 2023-07-16 12:20 | disposition home or self-care (01) ==
LOC: SUR 06:19
PROVIDERS: PCP Internal Medicine; Visit Provider Surgery
PROC: 0FT44ZZ Resection of Gallbladder, Percutaneous Endoscopic Approach (ICD-10-PCS; CPT 47562; principal; 2023-07-16 07:30)
DX: K81.1 Chronic cholecystitis (principal); D36.0 Benign neoplasm of lymph nodes
CPT/HCPCS: 47562; 81025; 88304; J0665; J0690; J1100; J2001; J2250; J2405; J2704; J3010

== ENCOUNTER 2023-10-28 09:31 | Outpatient (REF) | payer MEDICAID, SELFPAY ==
--- NOTE | 2023-10-28 09:00 | PAPFT_PTH ---
PATIENT: Jessica Hernandez LOC: [facility] U#:[id number] AGE/SX: 33/F ROOM: RE10/28/[address]: Zuleima Schwarz DO : 1990 BED: DIS: 10/28/2023 SPEC #: [id number] RECD: 10/28/23 13:17 STATUS: LYNDSEY REQ #: [id number] LIZZETH: 10/28/23 09:[address]: Zuleima Schwarz DEPT: [facility] Cytology RECD BY: Mirian Quick ENTERED: 10/28/23 13:17 SP TYPE: PAPFT OTHR DR: Deb Garduno Tissues: 1 - CX/ENDOCX FOR PAP SMEARS Procedures: PAP THIN PREP/[facility] Screening HPV DNA PROBE Comments: [id number] (HPV 16 & 18/45)
== END 2023-10-28 09:32 | disposition home or self-care (01) ==
LOC: LBN 09:31
PROVIDERS: PCP Internal Medicine; Visit Provider Obstetrics & Gynecology
DX: Z01.419 Encounter for gynecological examination (general) (routine) without abnormal findings (principal); R87.612 Low grade squamous intraepithelial lesion on cytologic smear of cervix (LGSIL)
CPT/HCPCS: 88142; 87624

== ENCOUNTER 2023-12-27 01:26 | Outpatient (CLI) | payer MEDICAID, SELFPAY ==
--- NOTE | 2023-12-27 07:45 | DI.US_ITS ---
Exam(s) US PELVIS TRANSVAGINAL EXAM: US PELVIS TRANSVAGINAL CLINICAL HISTORY: anatomy,dysfunctional uterine bleeding,n93.8. TECHNIQUE: Transabdominal and transvaginal pelvic ultrasound was performed using standard protocol. COMPARISON: US US OB RIGOBERTO WEIGHT from 05/11/[address] ABDOMEN PELVIS W from 06/25/2022 US US ABD LTD - ONE ORGAN/QUAD from 04/12/2023 NM NM HEPATOBILIARY W/EF from 05/05/2023 FINDINGS: UTERUS: Findings suggestive of a septate uterus. Position: Retroverted. Size: 8.7 long by 4.7 AP by 5.9 transverse cm Endometrium: The 1st endometrial stripe is 1.9 cm. The 2nd endometrial stripe is 1.4 cm in thickness . There is a small amount of fluid within each endometrial canal. Myometrium: Unremarkable. Cervix: Unremarkable. OVARIES: Right: 5.6 x 3.9 x 4.1 cm Cyst or mass: No suspicious cystic or solid masses. There is a complex 3.7 x 2.9 x 3.8 cm right ovar dena cyst. No internal blood flow is seen. Left: 4.1 x 2.1 x 1.6 cm Cyst or mass: No suspicious cystic or solid masses. DOPPLER: Color: Symmetric and uniform flow to both ovaries. CUL-DE-SAC: Free fluid: There is a small amount of free fluid adjacent to the right ovary. Other: None. IMPRESSION: 1. Findings suggestive of a septate uterus. The endometrial stripe measures up to 1.9 cm. Follow-up as clinically appropriate. MRI of the pelvis might help to further characterize the uterus. 2. 3.7 x 2.9 x 3.8 cm complex right ovarian cyst. This may represent a hemorrhagic cyst. A follow-u p examination in 6 8 weeks is recommended to document resolution of the cyst. Unexpected findings DATA REPOSITORY:
== END 2023-12-27 01:46 ==
LOC: DI 01:26
PROVIDERS: PCP Internal Medicine; Visit Provider Obstetrics & Gynecology
DX: N93.8 Other specified abnormal uterine and vaginal bleeding (principal)
CPT/HCPCS: 76830; 76856